=== PATIENT | female | born 1970 | race Caucasian/White ===

== ENCOUNTER 2022-03-25 19:50 | Emergency (ER) | payer SELFPAY ==
[2022-03-25 20:12] VITALS: BP 166/75; PULSE 73; RESP 18; TEMP 36.8; O2SAT 98; BMI 28.1
--- NOTE | 2022-03-25 20:37 | ED_ITS ---
HPI - General Adult General Chief complaint: Eye Problems Stated complaint: roula eyes swollen Time Seen by Provider: 03/25/22 20:37 Source: patient Mode of arrival: ambulatory Limitations: no limitations History of Present Illness HPI narrative: Patient is a 51 year old assigned female at with no reported medical history of presenting to the emergency department today with bilateral eyelid redness and irritation. Patient states that both of her eye lids have been very dry and painful over the last 2 days. Patient denies any dizziness, lightheadedness, abdominal pain, nausea, vomiting, fever, chills, blurry vision, double vision, loss of vision, chest pain, difficulty breathing, shortness of breath, back pain, night sweats, pain with urination, increased urinary frequency, increased urinary urgency, blood in her urine or stool, syncope or a near syncopal episode, recent trauma or falls, bowel incontinence, bladder incontinence, bowel retention, bladder retention, or any other complaints at this time. Onset (ago): day(s) (2) Location: eyes Radiation: non-radiation Severity: mild Severity scale (1-10): 3 Pain Consistency: constant Relieving factors: none Exacerbating factors: none Associated symptoms: denies other symptoms Treatments prior to arrival: none Related Data Allergies Allergy/AdvReac Type Severity Reaction Status Date / Time No Known Allergies Allergy Verified 03/25/22 20:11 Review of Systems Constitutional: Constitutional: Reports no additional constitutional complaints, Denies chills, Denies fever(s) and Denies night sweats Eyes: Eyes: Reports no additional eye complaints, Denies blurry vision, Denies change in vision, Denies diplopia, Denies eye discharge, Denies loss of vision and Denies eye pain ENT: Denies dizziness Comments: bilateral eye lid pain / redness Cardiovascular: Cardiovascular: Reports no additional cardiovascular complaints, Denies chest pain, Denies lightheadedness, Denies Loss of Consciousness and Denies dyspnea Respiratory: Respiratory: Reports no additional respiratory complaints and Denies dyspnea Gastrointestinal: Gastrointestinal: Reports no additional gastrointestinal complaints, Denies abdominal pain, Denies melena, Denies hematochezia, Denies change in bowel habits and Denies change in stool character Genitourinary: Genitourinary: Denies hematuria, Denies urinary frequency, Denies dysuria, Denies urinary incontinence, Denies urinary hesitancy and Denies urinary urgency Musculoskeletal: Musculoskeletal: Reports no additional musculoskeletal complaints, Denies numbness and Denies tingling Neurologic: Denies dizziness, Denies loss of vision, Denies numbness and Denies tingling Psychiatric: Psychiatric: Reports no additional psychiatric complaints Endocrine: Endocrine: Reports no additional endocrine complaints Hematologic/Lymphatic: Hematologic/Lymphatic: Reports no additional hematologic/lymphatic complaints Allergic/Immunologic: Allergic/Immunologic: Reports no additional allergic/immunologic complaints PMFSH Past Medical History Attestation statement: The following information was validated with the patient. Source: old records reviewed and nursing notes reviewed Social History Social History Advance Directives: No Advance Directives Information Provided: No Physical Exam ED Vital Signs: Vital Signs - 24 hr 03/25/22 20:12 Temperature 98.2 F Pulse Rate 73 Respiratory Rate 18 Blood Pressure 166/75 H Pulse Oximetry 98 Oxygen Delivery Method Room Air BMI result Body Mass Index 28.1 Const General: cooperative, no acute distress, alert and awake Nutritional Appearance: well nourished Orientation/consciousness: patient oriented x3 Limitations: no limitations HENMT Head: Yes normal to inspection and Yes atraumatic Ears: hearing grossly normal bilaterally and external ears normal General nose exam: Normal external nose present, no nasal discharge noted and no epistaxis Face and sinus: Yes normal facial exam, No abrasion and No laceration Mouth: Normal oral and palatal mucosa present, no drooling and no muffled voice Eyes Eyelids: Yes other (bilateral eye lid redness / dryness) Conjunctivae: conjunctivae normal Pupils: Equal, round and reactive pupils present EOM: EOMs intact bilaterally Neck Neck: Yes normal visual inspection, Yes full ROM and Yes no lymphadenopathy Chest Chest palpation & inspection: normal inspection of the chest Resp Effort & Inspection: normal respiratory effort and able to speak in complete sentences Auscultation: clear to auscultation bilaterally Cardio Rate: regular rate Rhythm: regular rhythm GI Inspection: Yes normal to inspection Palpation (GI): Soft to palpation, not firm, nontender and no guarding Neuro General: patient oriented x3 and moves all extremities Cranial nerves: Yes Equal, round and reactive pupils present Cognition (Neuro): normal cognition Motor exam (neuro): 5/5 motor strength present throughout Sensory Exam: Normal double simultaneous stimulation for sensation Coordination: [id number] test normal Extrem General: Yes normal to inspection, Yes full ROM and Yes capillary refill normal Psych Appearance: grossly normal Mental Status: mental status grossly normal Affect: normal affect Attitude: cooperative Thought process: Normal thought process present Thought content: Normal thought content present Insight: Good insight present (Psych) Medical Decision Making Medical Decision Making [facility] Narrative: Patient is a 51 year old assigned female at with no reported medical history presenting to the emergency department today with bilateral eye pain. Patient's physical exam showed bilateral eye redness and dryness. I explained my physical exam findings to the patient. I answered all questions asked by the patient. I stressed the importance of the patient taking her medication as prescribed. I stressed the importance of the patient following up with her primary care provider. I stressed the importance of the patient returning to the emergency department immediately if her symptoms were to worsen or if she were to develop any dizziness, shortness of breath, difficulty breathing, chest pain, blurry vision, loss of vision, nausea, vomiting, abdominal pain, fever, chills, back pain, or any other complaints. Patient verbalized agreement and understanding with this treatment plan and discharge. Differential Diagnosis Differential Diagnoses: The differential diagnosis associated with the presentation includes cellulitis, eczema Lab Data [facility] Lab Attestation statement: I reviewed the patient's lab results. Labs: Lab Results 03/25/22 03/25/22 Range/Units 20:20 20:20 COVID-19 (KIA) Negative (Negative) COVID-19 Clin Com See Note Influenza Type A (MATTHEW) Negative (Negative) Influenza Type B (MATTHEW) Negative (Negative) Influenza A & B Note See Note Discharge Plan Discharge Clinical Impression: Cellulitis, Eczema Patient Disposition: Home, Self-Care Instructions: Cellulitis (ED), Dermatitis (ED) Additional Instructions: Follow up with your primary care provider. Return to the emergency department immediately if your symptoms worsen or if you develop any dizziness, shortness of breath, difficulty breathing, chest pain, blurry vision, loss of vision, nausea, vomiting, abdominal pain, fever, chills, back pain, or any other complaints. Referrals: [facility] [Provider Group] (Call to establish and follow up with a astronomy professor. ) [facility] [place] [facility] [Provider Group] (Call to establish and follow up with a primary care provider. If you already have a primary care provider, please follow up with them. ) [facility] [place] Primary Lefty Darnell [Provider Group] (Call to establish and follow up with a primary care provider. If you already have a primary care provider, please follow up with them. ) [facility] [Provider Group] (Call to establish and follow up with a primary care provider. If you already have a primary care provider, please follow up with them. ) Stand Alone Forms: Work/School Release Print Language: German
[2022-03-25 20:43] LABS: COVID-19 Test Negative (Negative); IDNOW Serial# 08D9AD1C; Influenza A Negative (Negative); Influenza B2 Negative (Negative)
[2022-03-25] MEDS: cephALEXin 500 MG CAPSULE PO (20:54)
[2022-03-25] MEDS: predniSONE 20 MG TABLET PO (20:54)
== END 2022-03-25 20:59 | disposition home or self-care (01) ==
PROVIDERS: Emergency Provider Internal Medicine
DX: H00.033 Abscess of eyelid right eye, unspecified eyelid (principal); H00.036 Abscess of eyelid left eye, unspecified eyelid; L30.9 Dermatitis, unspecified; Z20.822 Contact with and (suspected) exposure to COVID-19
CPT/HCPCS: 87502; 87635; 99282

== ENCOUNTER 2024-07-10 12:00 | Emergency (ER) | payer MEDICAID, SELFPAY ==
--- NOTE | ~2024-07-10 | CT_ITS ---
CLINICAL HISTORY: Abdominal pain. CT abdomen and pelvis with contrast Comparison: None Findings: Findings at the level of the chest are reported separately. There are multiple liver cysts measuring up to 3.3 cm in size. 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 Remaining abdominal organs are unremarkable. There are no calcified gallstones. There is colonic diverticulosis. There is edema associated with a diverticulum within the midsigmoid colon. There is adjacent mesenteric edema and a small amount of adjacent free fluid. No abscess or free intraperitoneal air. No bowel obstruction. Status post hysterectomy. Otherwise unremarkable pelvic contents. Normal appendix. The bones are intact. IMPRESSION: Acute diverticulitis of the sigmoid colon. There is a small amount of adjacent free fluid. There is no evidence of abscess. This document has been electronically signed by: Thea Bhat MD on 07/10/2024 18:17:18
--- NOTE | ~2024-07-10 | CT_ITS ---
CLINICAL HISTORY: positive D-dimer palpitations. PE? CT angiography chest with contrast. 3D Postprocessing. Comparison: None Findings: The heart is normal size. RV/LV ratio is normal. The thoracic aorta is normal caliber. No acute pulmonary embolus. The visualized thyroid and mediastinum are unremarkable. There are ground-glass and linear opacities within the lower lungs, compatible with atelectasis. No consolidation or pleural effusion. 7 mm nodule associated with the right major fissure on image 27. The visualized upper abdomen is unremarkable. No acute fractures. IMPRESSION: 1. No evidence of pulmonary artery embolism. 2. There is a 7 mm nodule associated with the right major fissure. Recommend CT follow-up in 6-12 months. This document has been electronically signed by: Thea Bhat MD on 07/10/2024 18:28:33
[2024-07-10 12:08] VITALS: BP 136/73; PULSE 64; RESP 16; TEMP 36.7; O2SAT 96
--- NOTE | 2024-07-10 12:09 | ED_ITS ---
HPI - General Adult General Chief complaint: General Medical Stated complaint: fluttery heart abd cramps pressure Time Seen by Provider: 07/10/24 13:34 Source: patient Mode of arrival: ambulatory Limitations: no limitations History of Present Illness ED Provider: Kvng Jane HPI narrative: 53-year-old female with past medical history of depression presents to ED for palpitations for the past 3 weeks and also intermittent abdominal pain. Patient denies in his shortness of breath, leg swelling, calf pain, or pleurisy. He denies any genitourinary symptoms. Patient denies any chest pain radiating to the back. Related Data Previous Rx's ?Medication ?Instructions ?Recorded cephalexin 500 mg capsule 500 mg PO Q6H 7 days #28 caps 03/25/22 prednisone 20 mg tablet 20 mg PO DAILY 7 days #7 tabs 03/25/22 amoxicillin 875 mg-potassium 1 tab PO Q12H 10 days #20 tabs 07/10/24 clavulanate 125 mg tablet naproxen 500 mg tablet 500 mg PO BID PRN pain #14 tabs 07/10/24 Allergies Allergy/AdvReac Type Severity Reaction Status Date / Time No Known Allergies Allergy Verified 07/10/24 12:15 Review of Systems 2 Review of Systems: Intermittent chest palpitation and abdominal cramping Yes all other systems are reviewed and are negative Physical Exam ED Vital Signs: Vital Signs - 24 hr 07/10/24 12:08 07/10/24 14:21 07/10/24 18:33 Temperature 98.1 F 98.1 F Pulse Rate 64 54 58 Respiratory Rate 16 16 15 Blood Pressure 136/73 144/71 H 131/77 Pulse Oximetry 96 95 93 Oxygen Delivery Method Room Air Room Air Room Air BMI result Body Mass Index 0.3 Const General: cooperative, healthy appearing, comfortable, no acute distress, well developed, alert, awake and Physically active Orientation/consciousness: patient oriented x3 HENMT Head: Yes normal to inspection, Yes No palpable skull fracture present, Yes normocephalic and Yes atraumatic Eyes General: appearance normal, both eyes and all related structures Neck Neck: Yes normal visual inspection, Yes full ROM, Yes no lymphadenopathy, Yes no meningeal signs, Yes trachea midline, Yes supple, No anterior neck swelling and No tender Chest Chest palpation & inspection: normal inspection of the chest and normal palpation of entire chest wall Breast/axilla inspection: normal inspection of the breasts Resp Effort & Inspection: normal respiratory effort and able to speak in complete sentences Auscultation: clear to auscultation bilaterally Cardio Jugular venous distension: no JVD Heart sounds: S1 normal heart sound present and S2 normal heart sound present GI Inspection: Yes normal to inspection Palpation (GI): Soft to palpation, not firm, Tenderness to palpation present (GI) in the LLQ and in the RLQ, no guarding and not rigid General: Yes no CVA tenderness Back/Spine/Pelvis Back: no CVA tenderness and No back tenderness Skin General skin exam: no rashes or lesions noted, elasticity normal and turgor normal Neuro General: patient oriented x3, gait normal, tone normal, moves all extremities, Normal light touch and pain sensation, no meningeal signs, no focal motor deficits, CN's II-XI intact bilaterally and normal sensation to monofilament Extrem Other: Bilateral lower extremity negative for swelling, pitting edema, calf tenderness. General: Yes normal to inspection, Yes full ROM and Yes capillary refill normal Psych Appearance: grossly normal, well kempt and not disheveled Course Course Course Narrative: This is a Rapid Medical Examination (RME) performed by Tien Martin PA-C in triage. Full HPI, ROS, assessment and treatment plan per primary provider in the Main ED. 07/10/24 1209 HATTIE Bansal Hx: 53 yo female here for eval of intermittent fluttering sensation x1 week. no chest pain. admits to nausea w/ one episode of vomiting. also reports feeling a pulsation in her abdomen/pelvic pressure/ abd cramping last night which began radiating to her back on lying down yesterday. states she may have a UTI. no urinary sx. last BM yesterday. surgical hx includes complete hysterectomy. PE/vitals: well appearing, vitals stable Plan: labs, ekg Medications Administered Discontinued Medications Generic Name Dose Route Start Last Admin Trade Name Freq PRN Reason Stop Dose Admin Iohexol 100 ml 07/10/24 17:26 07/10/24 17:27 Iohexol 350 Mg/Ml 100 Ml Infus..Btl IV 07/10/24 17:27 85 ml ONCE ONE Administration Ketorolac Tromethamine 30 mg 07/10/24 19:05 07/10/24 19:10 Ketorolac Tromethamine 30 Mg/Ml Vial IVPUSH 07/10/24 19:06 30 mg ONCE ONE Administration Medical Decision Making Medical Decision Making [facility] Narrative: 53-year-old female presents to ED for intermittent chest palpitations and slight lower abdominal cramping for past couple of weeks. Patient not in distress. Patient presently has no chest pain or shortness of breath. Due to atypical presentation of palpitation. Thyroid level was sent which were normal. D-dimer was elevated so a chest CTA was ordered and abdominal CT scan was ordered. 7:07pm: Chest CTA negative for PE but does shows right pulmonary nodule. CT scan shows acute diverticulitis. Patient will be given Toradol and discharged with Augmentin. Patient explained worrisome signs and informed to return to the ED immediately. PATIENT MADE AWARE OF LIVER CYSTS. patient given copy of images for follow up. Differential Diagnosis Differential Diagnoses: The differential diagnosis associated with the presentation includes (PE, anxiety, pneumonia, hepatitis, colitis) Admission/Observation Consideration of admission/observation: Escalation of care including admission/observation considered Lab Data [facility] Lab Attestation statement: I reviewed the patient's lab results. 07/10/24 12:30 07/10/24 12:30 Labs: Lab Results 07/10/24 07/10/24 07/10/24 Range/Units 12:30 14:24 15:20 WBC 7.1 (4.8-10.8) X10*3/uL RBC 4.38 (4.20-5.50) X10*6/uL Hgb 12.9 (12.0-16.0) g/dl Hct 38.3 (37.0-47.0) % MCV 87.4 (80.0-98.0) fL MCH 29.5 (27.0-33.0) pg MCHC 33.7 (31.0-35.0) g/dl RDW 12.9 (11.0-16.0) % Plt Count 272 (160-400) X10*3/uL MPV 9.7 (9.4-12.3) fL Immature Gran % (Auto) 0.3 (0.0-0.4) % Neut % (Auto) 48.8 (45-73) % Lymph % (Auto) 41.6 H (20-40) % Frio % (Auto) 7.4 (2-11) % Eos % (Auto) 1.5 (0-4) % Baso % (Auto) 0.4 (0-2) % Lymph # (Auto) 3.0 (1.2-4.9) X10*3/uL Frio # (Auto) 0.5 (0.1-1.2) X10*3/uL Eos # (Auto) 0.1 (0.0-0.4) X10*3/uL Baso # (Auto) 0.0 (0.0-0.2) X10*3/uL Abs Immat Gran (auto) 0.02 (0.00-0.03) X10*3/uL Absolute Neuts (auto) 3.5 (2.0-8.3) x10*3/uL Absolute Nucleated RBC 0.000 (0.0-0.012) X10*3/uL Nucleated RBC % (auto) 0.0 (0.0-0.2) /100WBC PT 19.7 H (10.9-12.4) SEC INR 1.7 H (0.9-1.1) APTT 35.6 (26.0-36.8) SEC D-Dimer High Sensitivty 260 NG/ML Sodium 138 (135-145) mmol/L Potassium 4.1 (3.3-5.1) mmol/L Chloride 105 (96-108) mmol/L Carbon Dioxide 26 (22-29) mmol/L Anion Gap 11 L (12-20) BUN 7 L (9-16) mg/dL Creatinine 0.59 (0.5-1.4) mg/dL Estim Creat Clear Calc 160.0 Estimated GFR > 60 Random Glucose 87 (60-115) mg/dL Calcium 9.5 (8.4-10.2) mg/dL Magnesium 2.1 (1.6-2.6) mg/dL Total Bilirubin 0.7 (0.0-1.0) mg/dL AST 22 (5-31) U/L ALT 18 (0-31) U/L Alkaline Phosphatase 70 (39-117) U/L Troponin I High Sens < 2.7 (<3.5-17.0) ng/L B-Natriuretic Peptide 30 (<100) pg/mL Total Protein 7.3 (6.5-8.0) g/dL Albumin 4.2 (3.5-5.0) g/dL Lipase 19 (8-78) U/L TSH 1.17 (0.32-4.0) uIU/mL Beta HCG, Quant 3 mIU/mL Urine Color Yellow Urine Appearance Clear Urine pH 6.0 (5.0-9.0) Ur Specific [place] 1.010 (1.005-1.025) Urine Protein Negative (Neg-Trace) mg/dL Urine Glucose (UA) Negative (Negative) mg/dL Urine Ketones Trace (Negative) mg/dL Urine Blood Negative (Negative) Urine Nitrite Negative (Negative) Ur Leukocyte Esterase Small (1+) H (Negative) Urine RBC 0-2 (0-2) /HPF Urine WBC 0-5 (0-5) /HPF Ur Squamous Epith Cells 3-5 (0-2) /HPF Urine Bacteria None Seen (None Seen) Hyaline Casts 0-2 (0-2) /LPF Independent Interpretation I performed an independent interpretation of an: CT Scan Radiology Impression Discussion of test interpretation with radiology: I have reviewed the radiologist's reading. Independent Historian Clinical information obtained from an independent historian. History obtained from or confirmed by: Other (Patient) Prescription Management I considered prescription management with: Pain Medication and Antibiotic Discharge Plan Discharge Clinical Impression: Pulmonary nodule, Diverticulitis Patient Disposition: Home, Self-Care Instructions: Diverticulitis Diet (ED), Pulmonary Nodules (ED) Additional Instructions: Chest CT scan shows pulmonary nodule. Scaphoid showed acute diverticulitis. Recommend follow up with primary care provider. You will be discharged with pain medication and antibiotics. Return to the for any coughing up blood, weight loss, calf swelling, chest pain, shortness of breath on inspiration, profuse diarrhea, blood in stool, severe abdominal pain, nausea, vomiting, or any other concerning symptoms. CT angiography chest with contrast. 3D Postprocessing. Comparison: None Findings: The heart is normal size. RV/LV ratio is normal. The thoracic aorta is normal caliber. No acute pulmonary embolus. The visualized thyroid and mediastinum are unremarkable. There are ground-glass and linear opacities within the lower lungs, compatible with atelectasis. No consolidation or pleural effusion. 7 mm nodule associated with the right major fissure on image 27. The visualized upper abdomen is unremarkable. No acute fractures. IMPRESSION: 1. No evidence of pulmonary artery embolism. 2. There is a 7 mm nodule associated with the right major fissure. Recommend CT follow-up in 6-[address] abdomen and pelvis with contrast Comparison: None Findings: Findings at the level of the chest are reported separately. There are multiple liver cysts measuring up to 3.3 cm in size. 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 Remaining abdominal organs are unremarkable. There are no calcified gallstones. There is colonic diverticulosis. There is edema associated with a diverticulum within the midsigmoid colon. There is adjacent mesenteric edema and a small amount of adjacent free fluid. No abscess or free intraperitoneal air. No bowel obstruction. Status post hysterectomy. Otherwise unremarkable pelvic contents. Normal appendix. The bones are intact. IMPRESSION: Acute diverticulitis of the sigmoid colon. There is a small amount of adjacent free fluid. There is no evidence of abscess. This document has been electronically signed by: Thea Bhat MD on 07/10/2024 18:17:18 Prescriptions: New naproxen 500 mg tablet 500 mg PO BID PRN (Reason: pain) Qty: 14 0RF amoxicillin-pot clavulanate 875-125 mg tablet 1 tab PO Q12H 10 Days Qty: 20 0RF No Action prednisone 20 mg tablet 20 mg PO DAILY 7 Days Qty: 7 0RF cephalexin 500 mg capsule 500 mg PO Q6H 7 Days Qty: 28 0RF Referrals: Dinah Aparicio NP [Primary Care Provider] - (Pulmonary nodule. Acute diverticulitis) Interventions: ED Discharge Assessment Last Done: 07/10/24 20:58 Discharge Date/Time: 07/10/24 20:59 Print Language: Malay
--- NOTE | 2024-07-10 12:13 | ECG_ITS ---
Test Reason : FLUTTER SENSATION Blood Pressure : */* mmHG Vent. Rate : 62 BPM Atrial Rate : 62 BPM P-R Int : 166 ms QRS Dur : 124 ms QT Int : 460 ms P-R-T Axes : 52 21 2 degrees QTcB Int : 466 ms Normal sinus rhythm Right bundle branch block Abnormal ECG No previous ECGs available Referred By: Evelin Martin Electronically Signed By: JAMAR PIÑA MD
[2024-07-10 12:43] LABS: MANUAL DIFF FLAG NO
[2024-07-10 12:49] LABS: Basophils Percent Auto 0.4 % (0-2); Eosinophils Absolute Auto 0.1 X10*3/uL (0.0-0.4); Eosinophils Percent Auto 1.5 % (0-4); Hematocrit 38.3 % (37.0-47.0); Hemoglobin 12.9 g/dl (12.0-16.0); Imm Gran Abs Auto 0.02 X10*3/uL (0.00-0.03); Imm Gran Pct Auto 0.3 % (0.0-0.4); Lymphocytes Percent Auto 41.6 % (20-40); Mean Corpuscular HGB Conc 33.7 g/dl (31.0-35.0); Mean Corpuscular Hemoglobin 29.5 pg (27.0-33.0); Mean Corpuscular Volume 87.4 fL (80.0-98.0); Mean Platelet Volume 9.7 fL (9.4-12.3); Monocytes Absolute Auto 0.5 X10*3/uL (0.1-1.2); Monocytes Percent Auto 7.4 % (2-11); Neutrophils Absolute Auto 3.5 x10*3/uL (2.0-8.3); Neutrophils Percent Auto 48.8 % (45-73); Platelet Count 272 X10*3/uL (160-400); Red Blood Count 4.38 X10*6/uL (4.20-5.50); Red Cell Distribution Width 12.9 % (11.0-16.0); White Blood Count 7.1 X10*3/uL (4.8-10.8)
[2024-07-10 13:06] LABS: Troponin-I High Sensitivity < 2.7 ng/L (<3.5-17.0)
[2024-07-10 13:09] LABS: Alanine Aminotransferase 18 U/L (0-31); Albumin Level 4.2 g/dL (3.5-5.0); Anion Gap 11 (12-20); Aspartate Amino Transferase 22 U/L (5-31); Bilirubin Total 0.7 mg/dL (0.0-1.0); Blood Urea Nitrogen 7 mg/dL (9-16); Calcium 9.5 mg/dL (8.4-10.2); Carbon Dioxide 26 mmol/L (22-29); Chloride 105 mmol/L (96-108); Estimated Glomerular Filt Rate > 60; Glucose Random 87 mg/dL (60-115); Lipase 19 U/L (8-78); Magnesium 2.1 mg/dL (1.6-2.6); Potassium 4.1 mmol/L (3.3-5.1); Sodium 138 mmol/L (135-145); Total Protein 7.3 g/dL (6.5-8.0)
[2024-07-10 14:21] VITALS: BP 144/71; PULSE 54; RESP 16; O2SAT 95
[2024-07-10 14:34] LABS: Appearance Urine Clear; Color Urine Yellow; Glucose Urine UA Negative (Negative); Leukocyte Esterase Urine Small (1+) (Negative); Nitrite Urine Negative (Negative); UMIC TRIGGER UACC YES; Urine Blood Negative (Negative); Urine Ketones Trace mg/dL (Negative); Urine Protein Negative (Neg-Trace)
[2024-07-10 14:46] LABS: HCG Quantitative 3 mIU/mL
[2024-07-10 14:48] LABS: Bacteria Urine None Seen (None Seen); Hyaline Casts Urine 0-2 /LPF (0-2); RBC Urine 0-2 /HPF (0-2); UACC Culture Trigger YES; WBC Urine 0-5 /HPF (0-5)
[2024-07-10 15:31] LABS: INTERNATIONAL NORM RATIO 1.7 (0.9-1.1); Prothrombin Time 19.7 SEC (10.9-12.4)
[2024-07-10 15:33] LABS: D Dimer High Sensitivity 260 NG/ML
[2024-07-10 15:34] LABS: Partial Thromboplastin Time 35.6 SEC (26.0-36.8)
[2024-07-10 15:47] LABS: B Type Natriuretic Peptide 30 pg/mL (<100)
[2024-07-10 16:02] LABS: TSH reflex Free T4 1.17 uIU/mL (0.32-4.0)
[2024-07-10] MEDS: iohexoL 350 MG/ML 100 ML INFUS..BTL IV (17:27)
[2024-07-10 18:33] VITALS: BP 131/77; PULSE 58; RESP 15; TEMP 36.7; O2SAT 93
[2024-07-10 18:43] LABS: Alkaline Phosphatase 70 U/L (39-117)
[2024-07-10] MEDS: Ketorolac Tromethamine 30 MG/ML VIAL IVPUSH (19:10)
[2024-07-10 19:52] VITALS: BP 138/69; PULSE 55; RESP 16; TEMP 36.6; O2SAT 96
[2024-07-10 20:58] VITALS: BP 142/85; PULSE 53; RESP 16; TEMP 36.6; O2SAT 98
== END 2024-07-10 20:59 | disposition home or self-care (01) ==
PROVIDERS: Physician Assistant; Physician Assistant Medical; Emergency Provider Emergency Medicine Emergency Medical Services; PCP Nurse Practitioner Family
DX: R91.1 Solitary pulmonary nodule (principal); I48.92 Unspecified atrial flutter; K57.32 Diverticulitis of large intestine without perforation or abscess without bleeding; R25.2 Cramp and spasm; R06.02 Shortness of breath; R10.2 Pelvic and perineal pain; Z79.899 Other long term (current) drug therapy
CPT/HCPCS: 36415; 71275; 74177; 80053; 81001; 83690; 83735; 83880; 84443; 84484; 84702; 85025; 85379; 85610; 85730; 87086; 93005; 96374; 99284; J1885; Q9967

== ENCOUNTER → 2024-07-10 12:13 | Outpatient (BNV) | payer MEDICAID, SELFPAY | PROVIDERS: Emergency Provider Emergency Medicine Emergency Medical Services; PCP Nurse Practitioner Family; Visit Provider Internal Medicine Cardiovascular Disease | DX: I45.10 Unspecified right bundle-branch block (principal) | CPT/HCPCS: 93010 ==

== ENCOUNTER → 2024-07-10 16:25 | Outpatient (BNV) | payer MEDICAID, SELFPAY | PROVIDERS: Emergency Provider Emergency Medicine Emergency Medical Services; PCP Nurse Practitioner Family; Visit Provider Radiology Diagnostic Radiology | DX: K57.30 Diverticulosis of large intestine without perforation or abscess without bleeding (principal); R91.1 Solitary pulmonary nodule | CPT/HCPCS: 71275; 74177 ==

== ENCOUNTER 2024-12-28 12:39 | Emergency (ER) | payer MEDICAID, SELFPAY ==
--- NOTE | ~2024-12-28 | XR_ITS ---
EXAMINATION: XR KNEE, LEFT CLINICAL INFORMATION: fall COMPARISON: None available. TECHNIQUE: Four views of the left knee. FINDINGS: No fracture or joint effusion. Alignment is anatomic. Joint spaces are maintained. No abnormal soft tissue calcification. XR/XR knee LT 4V IMPRESSION: Normal left knee. Electronically signed by: Zandra Carlin MD 12/28/2024 02:07 PM EDT
--- NOTE | ~2024-12-28 | XR_ITS ---
EXAMINATION: XR KNEE, RIGHT CLINICAL INFORMATION: fall COMPARISON: None available. TECHNIQUE: Four views of the right knee. FINDINGS: Alignment is normal. No fracture or dislocation. Mild degenerative changes at the medial femoral tibial and patellofemoral joints small osteophytes. No joint effusion. Soft tissues are normal. XR/XR knee RT 4V IMPRESSION: Mild degenerative changes. No fracture or dislocation. Electronically signed by: Zandra Carlin MD 12/28/2024 02:31 PM EDT
[2024-12-28 13:38] VITALS: BP 153/74; PULSE 65; RESP 16; TEMP 36.6; O2SAT 96; BMI 33.8
--- NOTE | 2024-12-28 13:44 | ED_ITS ---
HPI - General Adult General Chief complaint: Extremity Injury, Lower Stated complaint: fell on knees, L knee hurts more Time Seen by Provider: 12/28/24 13:42 Source: patient Mode of arrival: ambulatory Limitations: no limitations History of Present Illness ED Provider: Kvng Jane HPI narrative: 54 yold female with no pmh presents to the ED for bilateral knee pain after falling unto both knees. Patient states she was walking her dog and she tripped over dog leash and fell unto her knees. Patient denies hitting head, loss of consciousness, any new complaints, or any new trauma. Related Data Previous Rx's ?Medication ?Instructions ?Recorded cephalexin 500 mg capsule 500 mg PO Q6H 7 days #28 cap s 03/25/22 prednisone 20 mg tablet 20 mg PO DAILY 7 days #7 tab s 03/25/22 amoxicillin 875 mg-potassium 1 tab PO Q12H 10 days #20 tabs 07/10/24 clavulanate 125 mg tablet naproxen 500 mg tablet 500 mg PO BID PRN pain #14 t abs 07/10/24 naproxen 500 mg tablet 500 mg PO BID PRN pain #14 t abs 12/28/24 Allergies Allergy/AdvReac Type Severity Reaction Status Date / Time No Known Allergies Allergy Verified 12/28/24 13:40 Review of Systems 2 Review of Systems: bilateral knee pain Yes all other systems are reviewed and are negative [facility] Social History Social History Advance Directives: No Advance Directives Information Provided: No Advance Directives on File: No Physical Exam ED Vital Signs: Vital Signs - 24 hr 12/28/24 13:38 Temperature 98 F Pulse Rate 65 Respiratory Rate 16 Blood Pressure 153/74 H Pulse Oximetry 96 Oxygen Delivery Method Room Air BMI result Body Mass Index 33.8 Const General: cooperative, healthy appearing, comfortable, no acute distress, well developed, alert, awake and Physically active Orientation/consciousness: patient oriented x3 HENMT Head: Yes normal to inspection, Yes No palpable skull fracture present, Yes normocephalic and Yes atraumatic Ears: hearing grossly normal bilaterally, external ears normal, TM's normal bilaterally, TM normal on the right, TM normal on the left, EAC's normal, mastoids normal and no periauricular adenopathy Eyes General: appearance normal, both eyes and all related structures Neck Neck: Yes normal visual inspection, Yes full ROM, Yes no lymphadenopathy, Yes no meningeal signs, Yes trachea midline, Yes supple, No anterior neck swelling and No tender Chest Chest palpation & inspection: normal inspection of the chest and normal palpation of entire chest wall Resp Effort & Inspection: normal respiratory effort and able to speak in complete sentences Auscultation: clear to auscultation bilaterally Cardio Jugular venous distension: no JVD Heart sounds: S1 normal heart sound present and S2 normal heart sound present GI Inspection: Yes normal to inspection Palpation (GI): Soft to palpation, not firm, nontender, no guarding and not rigid General: Yes no CVA tenderness Back/Spine/Pelvis Back: no CVA tenderness and No back tenderness Skin General skin exam: no rashes or lesions noted, elasticity normal and turgor normal Neuro General: patient oriented x3, gait normal, tone normal, moves all extremities, Normal light touch and pain sensation, no meningeal signs, no focal motor deficits and CN's II-XI intact bilaterally Extrem General: Yes normal to inspection, Yes full ROM and Yes capillary refill normal Knee images: 2 1. positive for tenderness on palpation. negative for ecchymosis, erythema, deformities, crepitus, stiffness, or warmth. Rest of extremity is normal. Motor, neuro, and vascular exam is intact. 2. positive for tenderness on palpation. negative for ecchymosis, erythema, deformities, crepitus, stiffness, or warmth. Rest of extremity is normal. Motor, neuro, and vascular exam is intact. Psych Appearance: grossly normal, well kempt and not disheveled Course Course Course Narrative: RME: 54-year-old female presents to ED for bilateral knee pain after tripping over her dog. Patient states she was walking her dog. Certainly she tripped over the leash and fell onto both knees. Patient denies hitting head or loss of consciousness. Patient states no other complaints. Knee x-ray ordered Medical Decision Making Medical Decision Making MDM Narrative: 54-year-old female presents to ED for bilateral knee pain after being tripped by her dog and falling onto her knees. Patient denies hitting head or loss of consciousness. Patient states no other complaints. X-rays normal negative for fracture. Not suspecting brain bleed, cervical spine fracture, OR, PE, pneumothorax, hemothorax, septic joint, compartment syndrome, or any other life- threatening etiology. Patient explained worrisome signs and informed to return to the ED immediately. 10:36- patient left before receiving discharge paper. Differential Diagnosis Differential Diagnoses: The differential diagnosis associated with the presentation includes (Knee sprain, knee fracture knee dislocation) Admission/Observation Consideration of admission/observation: Escalation of care including admission/observation considered Independent Interpretation I performed an independent interpretation of an: Plain X-Ray Radiology Impression Discussion of test interpretation with radiology: I have reviewed the radiologist's reading. Independent Historian Clinical information obtained from an independent historian. History obtained from or confirmed by: Other (patient) Prescription Management I considered prescription management with: Pain Medication Discharge Plan Discharge Clinical Impression: Knee sprain Patient Disposition: Home, Self-Care Instructions: Knee Sprain (ED), How to Use an Elastic Bandage (ED), P.R.I.C.E. Treatment (ED) Additional Instructions: X-rays came back normal. Recommend follow up with primary care provider. Return to the ED immediately for any headache, dizziness, nausea, vomiting, swelling, redness, stiffness, inability to walk, red streaks, or any other concerning symptoms. Prescriptions: New naproxen 500 mg tablet 500 mg PO BID PRN (Reason: pain) Qty: 14 0RF No Action prednisone 20 mg tablet 20 mg PO DAILY 7 Days Qty: 7 0RF cephalexin 500 mg capsule 500 mg PO Q6H 7 Days Qty: 28 0RF naproxen 500 mg tablet 500 mg PO BID PRN (Reason: pain) Qty: 14 0RF amoxicillin-pot clavulanate 875-125 mg tablet 1 tab PO Q12H 10 Days Qty: 20 0RF Referrals: Dinah Aparicio NP [Primary Care Provider, Medical] - 2 days Referral Note: Knee sprain fall Clinical Impression: Knee sprain Stand Alone Forms: Work/School Release Discharge Date/Time: 12/28/24 18:42 Print Language: Hong Konger
--- OUTSIDE RECORDS SUMMARY | 2024-12-28 18:44 | XMS_ITS | Encounter Summary ---
Author Organization [facility] Address [address] [place] [address] Phone Care Team Providers Care Spice Room Worker Name Role Phone Dinah Aparicio CNP Primary Care Provide r Encounter Details Date Type Department Care Team (Late st Contact Info) Description 12/10/2019 Ancillary Orders [address] [address] Dinah Aparicio CNP [address] [place] [address] [email or web address] Breast screening Social History Tobacco Use Types Packs/Day Years Used Date Smoking Tobacco: Never Smokeless Tobacco: Never Alcohol Use Standard Drinks/Week Comments Not Asked 1 (1 standard drink = 0.6 oz pur e alcohol) occasional, once a month Comments Unknown Sex and Gender Information Value Date Recorded Sex Assigned at Not on file Legal Sex Female 9:46 AM EDT Gender Identity Not on file Sexual Orientation Not on file documented as of this encounter Plan of Treatment Not on file documented as of this encounter Results * (ABNORMAL) BI MAMMOGRAM SCREENING WITH TOMOSYNTHESIS WITH CAD (BILATERAL) (01/04/2020 3:11 PM EDT) Anatomical Region Laterality Modality Breast Left, Breast Right, Breast Bilateral Bila teral Mammography 01/04/2020 3:39 PM EDT Impressions 01/04/2020 3:45 PM EDT Recommend additional imaging for possible new 1 cm mass in the mid one third of the lower outer right breast. No other findings suspicious for malignancy. The radiology department will attempt to recall the patient for the additional imaging. BI-RADS CATEGORY 0 - INCOMPLETE NEED ADDITIONAL IMAGING DENSITY: There are scattered fibroglandular densities. LEFT RECOMMENDATION DUE DATE: Annual Mammography Screening RIGHT RECOMMENDATION DUE DATE: 1 Month Additional Imaging Recall imagin degrees ML view, spot compression cc view of right breast, block off right breast ultrasound in case necessary. Narrative 01/04/2020 3:45 PM EDT Bilateral mammography is performed in conjunction with computed aided detection. 3-D tomography along with 2-D C view imaging was also performed. Comparison made to previous dated as far back as 06/12/2016 and as recent as 07/04/2017. Possible new oval approximate mm mass in the mid one third of the lower outer right breast. Small focal asymmetry in the lower inner right breast is stable for years. Otherwise, no suspicious masses, areas of architectural distortion or suspicious microcalcifications. Dinah Aparicio FREELANCE COPYWRITER IM MG EXAMS Final Result documented in this encounter Visit Diagnoses Diagnosis Breast screening Breast screening, unspecified Breast screening Breast screening, unspecified documented in this encounter Care Teams Spice Room Worker Relationship Specialty Start Date End Date Dinah Aparicio CNP [address] [place] [address] [place] [address] PCP - General Family Medicine 12/10/19 documented as of this encounter Additional Source Comments The information contained in this document represents components of the legal health record. It is not the complete legal health record.[facility]
--- OUTSIDE RECORDS SUMMARY | 2024-12-28 18:44 | XMS_ITS | Encounter Summary ---
Author Organization [facility] Address [address] [place] [address] Phone Care Team Providers Care Microarray Operations Vice President Name Role Phone Dinah Aparicio CNP Primary Care Provide r Encounter Details Date Type Department Care Team (Late st Contact Info) Description 12/10/2019 Ancillary Orders [facility],Outside Imaging [address] [place] [address] System, Provider Not In, [place] [address] Social History Tobacco Use Types Packs/Day Years [...] documented as of this encounter Results * US Breast Outside (No Interpretation) (09/09/2014 12:00 AM EDT) Narrative SYSTEMGENERATED, DOCUMENTATION - 12/10/2019 4:57 PM EDT This study is for PACS storage only and not for interpretation. us Provider Not In System PhD IMG OUTSIDE IMAGING W /OUT INTERPRETATION Final Result * Mammogram Outside (No Interpretation) (09/08/2014 12:00 AM EDT) Narrative SYSTEMGENERATED, DOCUMENTATION - 12/10/2019 4:56 PM EDT This study is for PACS storage only and not for interpretation. us Provider Not In System PhD IMG OUTSIDE IMAGING W /OUT INTERPRETATION Final Result documented in this encounter Visit Diagnoses Not on filedocumented in this encounter Care Teams Microarray Operations Vice President Relationship Specialty Start Date End Date Dinah Aparicio CNP [address] [place] [address] [place] [address] [email or web address] PCP - General Family Medicine 12/10/19 documented as of this encounter Additional Source Comments The information contained in this document represents components of the legal health record. It is not the complete legal health record.[facility]
--- OUTSIDE RECORDS SUMMARY | 2024-12-28 18:44 | XMS_ITS | Encounter Summary ---
Author Organization [facility] Address [address] [place] [phone] Phone Care Team Providers Care Sponge Buffer Name Role Phone Dinah Aparicio CNP Primary Care Provide r Encounter Details Date Type Department Care Team (Late st Contact Info) Description 12/11/2019 Ancillary Orders [facility],Outside Imaging [address] [place] [address] System, Provider Not In, [place] [address] Social History Tobacco Use Types Packs/Day Years [...] documented as of this encounter Results * Mammogram Outside (No Interpretation) (07/04/2017 12:00 AM EDT) Narrative SYSTEMGENERATED, DOCUMENTATION - 12/11/2019 8:59 AM EDT This study is for PACS storage only and not for interpretation. us Provider Not In System PhD IMG OUTSIDE IMAGING W /OUT INTERPRETATION Final Result * Mammogram Outside (No Interpretation) (06/12/2016 12:00 AM EDT) Narrative SYSTEMGENERATED, DOCUMENTATION - 12/11/2019 8:59 AM EDT This study is for PACS storage only and not for interpretation. us Provider Not In System PhD IMG OUTSIDE IMAGING W /OUT INTERPRETATION Final Result documented in this encounter Visit Diagnoses Not on filedocumented in this encounter Care Teams Sponge Buffer Relationship Specialty Start Date End Date Dinah Aparicio CNP [address] [place] [address] [place] [address] [email or web address] PCP - General Family Medicine 12/10/19 documented as of this encounter Additional Source Comments The information contained in this document represents components of the legal health record. It is not the complete legal health record.[facility]
--- OUTSIDE RECORDS SUMMARY | 2024-12-28 18:44 | XMS_ITS | Encounter Summary ---
Author Organization [facility] Address [address] [place] [address] [place] [phone] Phone Care Team Providers Care Facility Maintenance Technician Name Role Phone Dinah Aparicio CNP Primary Care Provide r Encounter Details Date Type Department Care Team (Late st Contact Info) Description 12/28/2024 Orders Only [facility] Medicine [address] [place] [address] Provider, MD [facility] [place] [phone] Social History Tobacco Use Types Packs/Day Years Used Date Smoking Tobacco: Never Smokeless Tobacco: Never Alcohol Use Standard Drinks/Week Comments Not Asked 1 (1 standard drink = 0.6 oz pur e alcohol) occasional, once a month Education Answer Date Recorded Are you interested in more education? Not on brittany e 07/20/2022 Are you concerned about learning? Not on file 07/20/2022 No 07/20/2022 No 07/20/2022 Digital Access Answer Date Recorded No 08/18/2022 No 08/18/2022 Reliable internet access at home? Not on file 08/18/2022 Device with a working camera? Not on file Comments No Sex and Gender Information Value Date Recorded Sex Assigned at Not on file Legal Sex Female 9:46 AM EDT Gender Identity Not on file Sexual Orientation Not on file documented as of this encounter Plan of Treatment Not on file documented as of this encounter Procedures Procedure Name Priority Date/Time Associated Diagnosis Comments OUTSIDE IMAGING Routine 12/28/2024 2:45 PM EDT OUTSIDE IMAGING Routine 12/28/2024 2:44 PM EDT documented in this encounter Results * Outside Imaging Report Only (12/28/2024 2:45 PM EDT) us Historical Provider IMLevi XR CHEST Edited Re sult - Final * Outside Imaging Report Only (12/28/2024 2:44 PM EDT) us Historical Provider MD FLOR XR CHEST Final Res ult documented in this encounter Visit Diagnoses Not on filedocumented in this encounter Additional Health Concerns Assessment Noted Time PHQ-9 Depression Total Score: 0 08/26/19 24 4:25 PM EDT PHQ-2 Depression Total Score: 0 08/26/19 24 4:25 PM EDT documented as of this encounter Care Teams Facility Maintenance Technician Relationship Specialty Start Date End Date Dinah Aparicio CNP [address] [place] [address] [place] [address] [email or web address] PCP - General Family Medicine 12/10/19 documented as of this encounter Additional Source Comments The information contained in this document represents components of the legal health record. It is not the complete legal health record.[facility]
--- OUTSIDE RECORDS SUMMARY | 2024-12-28 18:44 | XMS_ITS | Encounter Summary ---
Author Organization [facility] Address [address] [place] [address] [place] [address] Phone Care Team Providers Care Strapping Machine Operator Name Role Phone Dinah Aparicio CNP Primary Care Provide r Encounter Details Date Type Department Care Team (Late st Contact Info) Description 04/10/2023 Transcribe Orders Virtual Department [address] [place] [address] Dinah Aparicio CNP [address] [place] [address] [email or web address] Breast screening (Primary Dx) Social History Tobacco Use Types Packs/Day Years [...] documented as of this encounter Results * BI MAMMOGRAM SCREENING WITH TOMOSYNTHESIS WITH CAD (BILATERAL) (06/03/2023 9:26 AM EDT) Anatomical Region Laterality Modality Breast Left, Breast Right, Breast Bilateral Bila teral Mammography 06/05/2023 8:29 AM EDT Impressions 06/05/2023 8:32 AM EDT No mammographic evidence of malignancy in either breast. Annual screening mammography is recommended. BI-RADS 1 NEGATIVE The patient will be notified of the results and recommendations. Narrative 06/05/2023 8:32 AM EDT BI MAMMOGRAM SCREENING WITH TOMOSYNTHESIS WITH CAD (BILATERAL) Additional patient information: Screening. COMPARISON: Comparison is made with relevant prior imaging. Breast composition: There are scattered areas of fibroglandular density. FINDINGS: No abnormal masses, suspicious calcifications, or other significant findings are identified mammographically in either breast. There has been no interval change. Procedure Note Trinh Fernandez MD - 06/05/2023 BI MAMMOGRAM SCREENING WITH TOMOSYNTHESIS WITH CAD (BILATERAL) Additional patient information: Screening. COMPARISON: Comparison is made with relevant prior imaging. Breast composition: There are scattered areas of fibroglandular density. FINDINGS: No abnormal masses, suspicious calcifications, or other significantfindings are identified mammographically in either breast. There has beenno interval change. IMPRESSION: No mammographic evidence of malignancy in either breast. Annual screening mammography is recommended. BI-RADS 1 NEGATIVE The patient will be notified of the results and recommendations. Dinah Aparicio CNP IMG MG EXAMS Final Result documented in this encounter Visit Diagnoses Diagnosis Breast screening- Primary Breast screening, unspecified Breast screening Breast screening, unspecified documented in this encounter Care Teams Strapping Machine Operator Relationship Specialty Start Date End Date Dinah Aparicio CNP [address] [place] [address] [email or web address] PCP - General Family Medicine 12/10/19 documented as of this encounter Additional Source Comments The information contained in this document represents components of the legal health record. It is not the complete legal health record.[facility]
--- OUTSIDE RECORDS SUMMARY | 2024-12-28 18:44 | XMS_ITS | Encounter Summary ---
Author Organization [facility] Address [address] [place] [address] [place] [phone] Phone Care Team Providers Care Barge Pilot Name Role Phone Dinah Aparicio CNP Primary Care Provide r Encounter Details Date Type Department Care Team (Late st Contact Info) Description 12/10/2019 Procedure Pass [address] [place] [address] Social History Tobacco Use Types Packs/Day Years Used Date Smoking Tobacco: Never Smokeless Tobacco: Never Alcohol Use Standard Drinks/Week Comments Not Asked 1 (1 standard drink = 0.6 oz pur e alcohol) occasional, once a month Comments No Sex and Gender Information Value Date Recorded Sex Assigned at Not on file Legal Sex Female 9:46 AM EDT Gender Identity Not on file Sexual Orientation Not on file documented as of this encounter Plan of Treatment Not on file documented as of this encounter Visit Diagnoses Not on filedocumented in this encounter Care Teams Barge Pilot Relationship Specialty Start Date End Date Dinah Aparicio CNP [address] [facility] [place] [address] [email or web address] PCP - General Family Medicine 12/10/19 documented as of this encounter Additional Source Comments The information contained in this document represents components of the legal health record. It is not the complete legal health record.[facility]
--- OUTSIDE RECORDS SUMMARY | 2024-12-28 18:44 | XMS_ITS | Clinical Summary ---
Author Organization [facility] Address [address] [facility] [address] [place] [phone] Phone Care Team Providers Care Cash Teller Name Role Phone Dinah Aparicio CNP Primary Care Provide r Allergies No known active allergies Medications therapeutic multivitamin tablet Take 1 tablet by mouth daily. Active amoxicillin-clavu lanate (AUGMENTIN) 400-57 mg per chewable tablet Take 2 tablets by mouth 2 (two) times a day. Active naproxen (EC NAPROSYN) 500 MG EC tablet Take 500 mg by mouth 2 (two) times a day with meals. Active escitalopram oxalate (LEXAPRO) 20 MG tabletIndications :Depression with anxiety TAKE 1 TABLET BY MOUTH EVERY DAY 90 tablet 3 5 Active Active Problems Problem Noted Date Diagnosed Date Acute diverticulitis 07/20/2024 Overview (07/20/2024): 07/10/2024 - seen at [facility], treated with Augmentin Assessment & Plan (07/20/2024 12:23 PM EDT): Improving on Augmentin, recommend liquid based bland diet until better then ensure high fiber diet for the long run. Pulmonary nodule, right 07/20/2024 Overview (07/20/2024): 7 mm, incidental nodule found on CTA done 07/10/2024 f/u CT imaging 6 - 12 months Assessment & Plan (07/20/2024 12:26 PM EDT): 7 mm, incidental nodule found on CTA done 07/10/2024 f/u CT imaging 6 - 12 months Liver cyst 07/20/2024 Overview (07/20/2024): Multiple liver cysts found incidentally on imaging done 07/10/2024 Assessment & Plan (07/20/2024 12:26 PM EDT): Multiple liver cysts found incidentally on imaging done 07/10/2024, recommend she consult with gastroenterology. She prefers to use providers closer to home and so she will let me know who she wants to be referred to. Angiomyolipoma of left kidney 07/20/2024 Overview (07/20/2024): Found incidentally on imaging done 07/10/2024 Assessment & Plan (07/20/2024 12:25 PM EDT): Found incidentally on imaging done 07/10/2024, recommend she consult with urology. She prefers to use providers closer to home and so she will let me know who she wants to be referred to. Vertigo 12/24/2023 Assessment & Plan (12/24/2023 10:35 AM EDT): Episodic lasting seconds, normal neuro exam, mildly provoked by Kiet-Hallpike to the left. Given handout on Lance and Cawthorne exercises. Class 1 obesity due to exces s calories without serious comorbidity with body mass index (BMI) of 31.0 to 31.9 in adult 08/26/2023 Assessment & Plan (08/26/2023 5:19 PM EDT): Frustrated with weight, active but current activity may not burn enough calories, suggest adding high intensity exercise, reduce calories Depression with anxiety 04/15/2023 Assessment & Plan (08/26/2023 5:18 PM EDT): Doing well on current dose. Assessment & Plan (06/17/2023 8:58 AM EDT): No improvement with the addition of Lexapro 10 mg, will adjust dose to 20 mg daily and recheck in four weeks on effect on mood. If no benefit consider adding Bupropion. Pt feels safe. Assessment & Plan (04/15/2023 10:02 AM EST): Depression, anxiety present all year long but more manageable for patient when weather is sunnier and nicer as she tries to be more active outdoors. She attempts to do this as well during winter but not as effective. Unclear which med she tried in past gave her weird dreams, recommend trying the Escitalopram along with regular exercise. Encouraged her to plan out exercise at least three times a week. Continue light therapy, getting outdoors in daylight when able Resolved Problems Problem Noted Date Diagnosed Date Resolved Date Seasonal mood disorder 04/09/202304/15 Assessment & Plan (04/09/2023 3:15 PM EST): Return to f/u on this issue for consideration of medication. In the interim, exercise regularly and continue light therapy, she is not seeing a therapist Encounters Date Type Department Care Team Description 12/28/2024 Orders Only [facility] [address] [place] [address] Provider, MD Sada from Last 3 Months Immunizations Immunization Administration Dates Next Due Influenza Quadrivalent Preservative Free IM 03/25,02/11/2020 Influenza Trivalent MDCK Preservative Free IM Pneumococcal conjugate PCV21 05/29/2024 Tdap 04/09/2023 Zoster recombinant 05/29/2024 Family History Medical History Relation Comments No Known Problems Brother No Known Problems Daughter Diabetes Father Poor self-care Breast cancer Maternal Grandmother Stroke Mother Brain stem Bone cancer Paternal Grandmother No Known Problems Son Relation Status Comments Brother Alive Daughter Father Maternal Grandmother Mother Paternal Grandmother Son Social History Tobacco Use Types Packs/Day Years [...] on file Sexual Orientation Not on file Last Filed Vital Signs Vital Sign Reading Time Taken Comments Blood Pressure 118/72 07/20/2024 11:48 AM EDT Pulse 63 07/20/2024 11:48 AM EDT Temperature 36.6 C (97.9 F) 12/24/2023 9:47 AM EDT Respiratory Rate 20 08/26/2023 4:23 PM EDT Oxygen Saturation 94% 07/20/2024 11:48 AM EDT Inhaled Oxygen Concentration - - Weight 93.4 kg (206 lb) 07/20/2024 11:48 AM EDT Height 170.2 cm (5' 7 ) 07/20/2024 11:48 AM EDT Body Mass Index 32.26 07/20/2024 11:48 AM EDT Plan of Treatment Health Maintenance Due Date Last Done Comments COLOGUARD 2013 COLONOSCOPY 2013 COLORECTAL CANCER SCREENING 2013 FIT TEST 2013 FOBT 2013 SIGMOIDOSCOPY 2013 VIRTUAL COLONOSCOPY 2013 ZOSTER VACCINES (2 of 2) 07/24/2024 05/29/2024 DEPRESSION SCREENING 08/25/2024 08/26/2023, 08/26/19 24 INFLUENZA VACCINE (#1) 2024 , 04/09/2023, 02/11/2020 COVID-19 VACCINE ( season) 2024 01/24/2022, 05/26/2020, 04/21/2020 MAMMOGRAM 06/02/2025 06/03/2023, 12/23, 07/04/2017, Additional history exists SCREENING FOR DIABETES 07/11/2027 07/10/2024, 2023 LIPID PANEL 04/15/2028 04/15/2023 Adult Td,Tdap Booster 04/09/2033 04/09/2023 RSV VACCINE (1 - 1-dose 75+ series) 10/31/2043 HEPATITIS C SCREENING Completed 04/15/2023 HIV ONE-TIME SCREENING (18-65 YEARS) Completed 04/15/2023 PNEUMOCOCCAL VACCINES (50+ years) Completed 05/29/2024 SMOKING STATUS SCREENING (Once After 26 Yrs) Completed 07/20/2024 HEPATITIS A VACCINES Aged Out No long er eligible based on patient's age to complete this topic HIB VACCINES Aged Out No longer eligi ble based on patient's age to complete this topic MENINGOCOCCAL VACCINES (ACWY) Aged Out No longer eligible based on patient's age to complete this topic MENINGOCOCCAL VACCINES (B) Aged Out N o longer eligible based on patient's age to complete this topic Medical Devices Not on file Procedures Procedure Name Priority Date/Time Associated Diagnosis Comments OUTSIDE IMAGING Routine 12/28/2024 2:45 PM EDT OUTSIDE IMAGING Routine 12/28/2024 2:44 PM EDT OUTSIDE GLUCOSE FASTING Routine 07/10/2024 BI MAMMOGRAM SCREENING WITH TOMOSYNTHESIS WITH CAD (BILATERAL) Routine 06/03/2023 9:26 AM EDT Breast screening LIPID PANEL Routine 04/15/2023 10:05 AM EST Annual physical exam HEPATITIS C ANTIBODY, QUALITATIVE Routine 04/15/2023 10:05 AM EST Need for hepatitis C screening test from Last 3 Months or Most Recently Relevant to Health Maintenance Results * Outside Imaging Report Only (12/28/2024 2:45 PM EDT) us Historical Provider MD FLOR XR CHEST Edited Re sult - Final * Outside Imaging Report Only (12/28/2024 2:44 PM EDT) Historical Provider IMLevi XR CHEST Final Res ult * Outside Glucose,Fasting (07/10/2024) Glucose, fasting - External 87 65 - 99 mg/dL Historical Provider LAB BLOOD ORDERABLES Aliza l Result * BI MAMMOGRAM SCREENING WITH TOMOSYNTHESIS WITH [...] Aparicio CNP IMG MG EXAMS Final Result * Hepatitis C antibody, qualitative (04/15/2023 10:05 AM EST) HCV NON-REACTIV E NON-REACTI VE [facility] Blood 04/15/2023 10:0 5 AM EST 04/15/2023 10:08 AM EST us Dinah Aparicio CNP LAB BLOOD ORDERABLES Final Result Performing Organization Address City/[facility]/ZIP Co de Phone Number [address] [phone] * Lipid panel (04/15/2023 10:05 AM EST) HDL 50 mg/dL [facility] Comment: Interpretation <40 mg/dL: Low HDL cholesterol (major risk factor for CHD) Greater than or equal to 60 mg/dL: High HDL cholesterol ( negative risk factor for CHD) HDL - cholesterol is affected by a number of factors, e.g. smoking, excerise, hormones, sex and age. CHOLESTEROL 198 0 - 240 mg/dL [facility] TRIGLYCERIDES 108 30 - 160 mg/dL [facility] LDL 126 50 - 129 mg/dL [facility] Comment: LDL levels in terms of risk for coronary heart disease: <100 mg/dL: Optimal 100-129 mg/dL: Near or above optimal 130-159 mg/dL: Borderline high 160-189 mg/dL: High >190 mg/dL: Very High CARDIAC RISK RATIO 4.0 3.3 - 4.4 C [facility] Blood 04/15/2023 10:0 5 AM EST 04/15/2023 10:08 AM EST us Dinah Aparicio CNP LAB BLOOD ORDERABLES Final Result Performing Organization Address [facility]/ZIP Co de Phone Number [address] [phone] from Last 3 Months or Most Recently Relevant to Health Maintenance Insurance [facility] Care Teams Cash Teller Relationship Specialty Start Date End Date Dinah Aparicio CNP [address] [place] [id number] PCP - General Family Medicine 12/10/19 Additional Source Comments The information contained in this document represents components of the legal health record. It is not the complete legal health record.[facility]
--- OUTSIDE RECORDS SUMMARY | 2024-12-28 18:44 | XMS_ITS | Encounter Summary ---
Author Organization [facility] Address [address] [place] [phone] Phone Care Team Providers Care Park Landscape Architect Name Role Phone Dinah Aparicio CNP Primary Care Provide r Encounter Details Date Type Department Care Team (Late st Contact Info) Description 01/05/2020 Procedure Pass [address] [place] [address] Social History Tobacco Use Types Packs/Day Years [...] on filedocumented in this encounter Care Teams Park Landscape Architect Relationship Specialty Start Date End Date Dinah Aparicio CNP [address] [facility] [place] [address] PCP - General Family Medicine 12/10/19 documented as of this encounter Additional Source Comments The information contained in this document represents components of the legal health record. It is not the complete legal health record.[facility]
--- OUTSIDE RECORDS SUMMARY | 2024-12-28 18:44 | XMS_ITS | Encounter Summary ---
Author Organization [facility] Address [address] [place] [address] [place] [phone] Phone Care Team Providers Care Loan Officer Assistant Name Role Phone Dinah Aparicio CNP Primary Care Provide r Encounter Details Date Type Department Care Team (Late st Contact Info) Description 04/10/2023 Procedure Pass [address] [place] [address] Social History Tobacco Use Types Packs/Day Years [...] Assessment Noted Time PHQ-9 Depression Total Score: 9 04/15/19 24 9:32 AM EST PHQ-2 Depression Total Score: 4 04/15/19 24 9:32 AM EST documented as of this encounter Care Teams Loan Officer Assistant Relationship Specialty Start Date End Date Dinah Aparicio CNP [address] [place] [address] [email or web address] PCP - General Family Medicine 12/10/19 documented as of this encounter Additional Source Comments The information contained in this document represents components of the legal health record. It is not the complete legal health record.[facility]
--- OUTSIDE RECORDS SUMMARY | 2024-12-28 18:44 | XMS_ITS | Encounter Summary ---
Author Organization [facility] Address [address] [place] [phone] Phone Care Team Providers Care Dry Cleaning Manager Name Role Phone Dinah Aparicio CNP Primary Care Provide r Encounter Details Date Type Department Care Team (Late st Contact Info) Description 01/05/2020 Ancillary Orders [address] [address] Dinah Aparicio CNP [address] [place] [phone] [email or web address] Abnormal mammogram Social History Tobacco Use Types Packs/Day Years [...] as of this encounter Results * BI US BREAST LIMITED (RIGHT) (01/25/2020 2:23 PM EST) Anatomical Region Laterality Modality Breast Right, Breast Bilateral Right U ltrasound 01/25/2020 2:27 PM EST Impressions 01/25/2020 2:31 PM EST Focal density demonstrated in the inferolateral right breast appears to represent a chronic focus of apocrine metaplasia. In the absence of palpable or otherwise clinically significant findings routine bilateral screening mammography in 12 months time would be recommended for follow-up. Results of this examination were relayed to the patient by the technologist. BI-RADS CATEGORY 2 - BENIGN POS [id number]. Narrative 01/25/2020 2:31 PM EST Comparisons made with current mammographic study and an outside ultrasound dated 09/09/2014 the official report of which is not currently available. At the approximate 7:00 position 6 cm from the nipple is a collection of cysts measuring 1.0 x 0.4 x 0.8 cm in overall span, with a lesion of similar echogenicity documented at the 8:00 position 5-6 cm from the nipple on the prior study, measured at 1.1 x 0.6 x 1.1 cm. This correlates well in overall size and location to the mammographic density and most likely represents a focus of chronic apocrine metaplasia. Procedure Note Cristal Nieves MD - 01/25/2020 Comparisons made with current mammographic study and an outside ultrasounddated 09/09/2014 the official report of which is not currently available.At the approximate 7:00 position 6 cm from the nipple is a collection ofcysts measuring 1.0 x 0.4 x 0.8 cm in overall span, with a lesion ofsimilar echogenicity documented at the 8:00 position 5-6 cm from thenipple on the prior study, measured at 1.1 x 0.6 x 1.1 cm. This correlateswell in overall size and location to the mammographic density and mostlikely represents a focus of chronic apocrine metaplasia. IMPRESSION: Focal density demonstrated in the inferolateral right breast appears torepresent a chronic focus of apocrine metaplasia. In the absence ofpalpable or otherwise clinically significant findings routine bilateralscreening mammography in 12 months time would be recommended forfollow-up. Results of this examination were relayed to the patient by thetechnologist. BI-RADS CATEGORY 2 - BENIGN POS [id number]. Dinah Aparicio CNP [facility] US BREAST Final Result * BI MAMMOGRAM DIAGNOSTIC WITH TOMOSYNTHESIS WITH CAD (RIGHT) (01/25/2020 1:06 PM EST) Anatomical Region Laterality Modality Breast Right, Breast Bilateral Right M ammography 01/25/2020 2:09 PM EST Impressions 01/25/2020 2:13 PM EST The density demonstrated on recent mammography appears to represent a focus of apocrine metaplasia, also demonstrated on prior outside ultrasound although better visualized on current mammography than previous mammographic studies. In the absence of palpable or otherwise clinically significant findings bilateral screening mammography in 12 months time would appear adequate for surveillance. The results of this examination were relayed to the patient by the technologist. BI-RADS CATEGORY 2 - BENIGN DENSITY: There are scattered fibroglandular densities. Narrative 01/25/2020 2:13 PM EST Full-field mediolateral and spot compression craniocaudal C-view and tomographic imaging was performed with comparison to multiple prior studies, most recently 01/04/2020. The focal ovoid density in the inferolateral quadrant of the breast persists with smooth margins and was subsequently assessed on ultrasound and found to represent a cluster of cysts which appears to be chronic in comparison to a prior outside ultrasound obtained in 2014. Appearance is felt to be most consistent with chronic apocrine metaplasia. No architectural distortion apparent. Dinah Aparicio CNP [facility] MG EXAMS Final Result documented in this encounter Visit Diagnoses Diagnosis Abnormal mammogram Abnormal mammogram, unspecified Abnormal mammogram Abnormal mammogram, unspecified Abnormal mammogram Abnormal mammogram, unspecified documented in this encounter Care Teams Dry Cleaning Manager Relationship Specialty Start Date End Date Dinah Aparicio CNP [address] [place] [address] [place] [address] PCP - General Family Medicine 12/10/19 documented as of this encounter Additional Source Comments The information contained in this document represents components of the legal health record. It is not the complete legal health record.[facility]
== END 2024-12-28 18:42 | disposition home or self-care (01) ==
LOC: HO.ED 18:39
PROVIDERS: Emergency Provider Emergency Medicine; PCP Nurse Practitioner Family
DX: S83.92XA Sprain of unspecified site of left knee, initial encounter (principal); S83.91XA Sprain of unspecified site of right knee, initial encounter; W18.31XA Fall on same level due to stepping on an object, initial encounter; Y93.K1 Activity, walking an animal; Y92.9 Unspecified place or not applicable; Y99.9 Unspecified external cause status; M25.562 Pain in left knee; M25.561 Pain in right knee
CPT/HCPCS: 73564; 99281; 99283

== ENCOUNTER → 2024-12-28 13:42 | Outpatient (BNV) | payer MEDICAID, SELFPAY | PROVIDERS: Emergency Provider Emergency Medicine; PCP Nurse Practitioner Family; Visit Provider Radiology Diagnostic Radiology | DX: Z04.3 Encounter for examination and observation following other accident (principal) | CPT/HCPCS: 73564 ==

== ENCOUNTER 2025-02-24 04:58 | Emergency (ER) | payer MEDICAID, SELFPAY ==
--- NOTE | ~2025-02-24 | CT_ITS ---
EXAMINATION: CT ABDOMEN PELVIS WITH IV CONTRAST HISTORY: lower abd pain, hx diverticulitis COMPARISON: Comparison is made with the prior examination dated 07/10/2024. TECHNIQUE: CT scan of the abdomen and pelvis was performed following administration of 85 mL Omnipaque 350 using standard departmental protocol. Coronal and sagittal reformatted images were generated and reviewed. Oral contrast material was not administered at the request of the referring physician. This CT exam was performed with one or more of the following dose reduction techniques: automated exposure control, adjustment of the mA and/or kV according to patient size, use of iterative reconstruction technique. DLP: 690 mGy-cm FINDINGS: LOWER CHEST: The visualized lung bases are clear. There is no pleural effusion. CARDIOVASCULATURE: The heart is normal in size. There is no pericardial effusion. LIVER: The liver is normal in size and contour. Again seen are multiple hepatic cysts measuring up to 3.5 cm. The hepatic and portal veins are patent. GALLBLADDER / BILE DUCTS: The gallbladder is unremarkable. There is no intra or extrahepatic biliary ductal dilatation. SPLEEN: The spleen is normal in size. No focal splenic lesion is identified. PANCREAS: The pancreas is unremarkable in appearance. ADRENAL GLANDS: Within normal limits. KIDNEYS/RETROPERITONEUM: No renal calculi are identified. There is no hydronephrosis. Again seen is a 2.1 cm fat density mass at the upper pole of the left kidney, consistent with an angiomyolipoma. LYMPH NODES: No abdominal or pelvic lymphadenopathy. VASCULATURE: The abdominal aorta is normal in caliber. MESENTERY/PERITONEUM: There is a small amount of free fluid in the cul-de-sac. No masses. There is no free intraperitoneal gas. STOMACH: There is a small hiatal hernia. The remainder of the stomach is collapsed. SMALL BOWEL: The small bowel is normal in caliber. COLON: There is diverticulosis of the sigmoid colon. There is moderate wall thickening and pericolonic inflammatory stranding about the sigmoid colon, consistent with diverticulitis. There is no extraluminal gas or loculated fluid collection. APPENDIX: Normal. URINARY BLADDER/PELVIC ORGANS: The urinary bladder is collapsed, limiting evaluation. The patient is status post hysterectomy. BONES / SOFT TISSUES: No suspicious bony or soft tissue abnormalities. CT/CT abdomen pelvis w IV con IMPRESSION: Diverticulitis of the sigmoid colon as described. Electronically signed by: Joaquin Varner MD 02/24/2025 10:24 AM JEFF
[2025-02-24 05:13] VITALS: BP 154/66; PULSE 84; RESP 19; TEMP 36.7; O2SAT 95; BMI 29.3
[2025-02-24 05:29] LABS: MANUAL DIFF FLAG NO
[2025-02-24 05:30] LABS: Hematocrit 42.1 % (37.0-47.0); Hemoglobin 14.2 g/dl (12.0-16.0); Imm Gran Abs Auto 0.03 X10*3/uL (0.00-0.03); Imm Gran Pct Auto 0.3 % (0.0-0.4); Lymphocytes Absolute Auto 3.1 X10*3/uL (1.2-4.9); Mean Corpuscular HGB Conc 33.7 g/dl (31.0-35.0); Mean Corpuscular Hemoglobin 29.3 pg (27.0-33.0); Mean Corpuscular Volume 87.0 fL (80.0-98.0); NRBC Abs Auto 0.000 X10*3/uL (0.0-0.012); NRBC Pct Auto 0.0 /100WBC (0.0-0.2); Platelet Count 286 X10*3/uL (160-400); Red Blood Count 4.84 X10*6/uL (4.20-5.50); White Blood Count 11.0 X10*3/uL (4.8-10.8)
[2025-02-24 05:54] LABS: Alanine Aminotransferase 27 U/L (0-31); Albumin Level 4.7 g/dL (3.5-5.0); Alkaline Phosphatase 84 U/L (39-117); Anion Gap 14 (12-20); Aspartate Amino Transferase 23 U/L (5-31); Blood Urea Nitrogen 9 mg/dL (9-16); Calcium 9.6 mg/dL (8.4-10.2); Carbon Dioxide 23 mmol/L (22-29); Chloride 104 mmol/L (96-108); Creatinine Clr Calc Pharmacy 92.0; Estimated Glomerular Filt Rate > 60; Lipase 18 U/L (8-78); Potassium 4.1 mmol/L (3.3-5.1); Sodium 137 mmol/L (135-145); Total Protein 7.5 g/dL (6.5-8.0)
--- NOTE | 2025-02-24 09:20 | ED_ITS ---
HPI - General Adult General Chief complaint: Abdominal Pain Stated complaint: diverticulitis flare up? Time Seen by Provider: 02/24/25 09:14 Source: patient, RN notes reviewed and old records reviewed Mode of arrival: ambulatory Limitations: no limitations History of Present Illness ED Provider: Anabela HPI narrative: Patient is a 54 year old female with history of diverticulitis presenting with complaint of lower abdominal pain/cramping as well as bloating. States bloating started on Saturday and the pain began yesterday. Denies vomiting or diarrhea. Denies hematochezia or melena. States symptoms feel similar to previous episode of diverticulitis. States that even drinking water causes abdominal cramping to come on. Denies any urinary symptoms. Denies any vaginal bleeding or other abnormal vaginal discharge. Also complaining of bilateral knee pain since a fall in December. States pain primarily worsens with kneeling. Has an ortho appointment in April. Has not been taking any [id number] medications for her knee pain. MD complaint: abdominal pain Related Data Previous Rx's ?Medication ?Instructions ?Recorded cephalexin 500 mg capsule 500 mg PO Q6H 7 days #28 cap s 03/25/22 prednisone 20 mg tablet 20 mg PO DAILY 7 days #7 tab s 03/25/22 amoxicillin 875 mg-potassium 1 tab PO Q12H 10 days #20 tabs 07/10/24 clavulanate 125 mg tablet naproxen 500 mg tablet 500 mg PO BID PRN pain #14 t abs 07/10/24 naproxen 500 mg tablet 500 mg PO BID PRN pain #14 t abs 12/28/24 amoxicillin 875 mg-potassium 1 tab PO BID #20 tabs 06/16 clavulanate 125 mg tablet ondansetron 4 mg disintegrating 4 mg PO Q8H PRN nausea and 02/24/25 tablet vomiting #10 tabs Allergies Allergy/AdvReac Type Severity Reaction Status Date / Time No Known Allergies Allergy Verified 02/24/25 05:15 Review of Systems 2 Review of Systems: as per hpi Yes all other systems are reviewed and are negative Constitutional: Constitutional: Reports as per [facility] Social History Social History Smoked in Last 30 Days: No Use of substances other than those prescribed or required for medical reasons: No Advance Directives: No Advance Directives Information Provided: Yes Do you have a plan to hurt others: No Plan Physical Exam ED Vital Signs: Vital Signs - 24 hr 02/24/25 05:13 02/24/25 09:32 Temperature 98.1 F 97.8 F Pulse Rate 84 75 Respiratory Rate 19 14 Blood Pressure 154/66 H 113/49 L Pulse Oximetry 95 94 Oxygen Delivery Method Room Air Room Air BMI result Body Mass Index 29.3 Vital signs have been reviewed and appear to be correct. Blood pressure normal. Heart rate normal. Respiratory rate normal. Temperature normal. Oxygen saturation normal. Const General: cooperative, healthy appearing and no acute distress Orientation/consciousness: oriented to person, oriented to place, oriented to time and patient oriented x3 Limitations: no limitations HENMT Head: Yes normocephalic and Yes atraumatic Ears: external ears normal General nose exam: Normal external nose present Face and sinus: Yes face symmetric Mouth: oropharynx normal and moist mucous membranes Throat: Yes uvula midline Eyes Pupils: Equal, round and reactive pupils present Neck Neck: Yes normal visual inspection and Yes supple Resp Effort & Inspection: normal respiratory effort and able to speak in complete sentences Auscultation: clear to auscultation bilaterally Cardio Rate: regular rate Rhythm: regular rhythm Heart sounds: S1 normal heart sound present and S2 normal heart sound present GI Palpation (GI): Soft to palpation, Tenderness to palpation present (GI) in the LLQ and in the RLQ, no guarding and No Rebound tenderness present Auscultation: normoactive bowel sounds General: Yes no CVA tenderness Back/Spine/Pelvis Back: no CVA tenderness Skin General skin exam: elasticity normal and turgor normal Neuro General: oriented to person, oriented to place, oriented to time, patient oriented x3, moves all extremities, no focal motor deficits and CN's II-XI intact bilaterally Cranial nerves: Yes Equal, round and reactive pupils present Cognition (Neuro): normal cognition Extrem General: Yes full ROM, Yes no pedal edema and Yes no calf tenderness Psych Mental Status: mental status grossly normal Affect: normal affect Thought process: Normal thought process present Medications Administered Discontinued Medications Generic Name Dose Route Start Last Admin Trade Name Freq PRN Reason Stop Dose Admin Lactated Ringer's 1,000 mls @ 999 mls/hr 02/24/25 09:30 02/24/25 10:47 Lr IV 12/03/25 10:30 Infused .Q1H1M GRAEME Infusion Iohexol 100 ml 02/24/25 10:05 02/24/25 10:05 Iohexol 350 Mg/Ml 100 Ml Infus..Btl IV 02/24/25 10:06 85 ml ONCE ONE Administration Ketorolac Tromethamine 15 mg 02/24/25 09:26 02/24/25 09:48 Ketorolac Tromethamine 15 Mg/Ml Vial IVPUSH 02/24/25 09:27 15 mg ONCE ONE Administration Ondansetron HCl 4 mg 02/24/25 09:51 02/24/25 09:58 Ondansetron Hcl 4 Mg/2 Ml Vial IVPUSH 02/24/25 09:52 4 mg ONCE ONE Administration Medical Decision Making Medical Decision Making [facility] Narrative: Patient is a 54 year old female with history of diverticulitis presenting with complaint of lower abdominal pain/cramping as well as bloating. On exam patient is awake, A+Ox3, VS WNL, afebrile, normal neurological exam without focal deficits, physical exam findings as above. Given reported symptoms and physical exam findings, initial differential includes but is not limited to diverticulitis, perforation, abscess, appendicitis, UTI/pyelonephritis. Labs notable for mild leukocytosis. CT abdomen pelvis notable for diverticulitis. My interpretation is in agreement with the radiologist's interpretation. Results discussed with patient and all questions answered. Will treat with course of Augmentin. Advised follow up with PCP as needed. Return precautions discussed at bedside. Patient verbalized understanding of and agreement with plan. Differential Diagnosis Differential Diagnoses: The differential diagnosis associated with the presentation includes As per [facility] Admission/Observation Consideration of admission/observation: Escalation of care including admission/observation considered Patient would have been admitted to the hospital and transferred to appropriate facility had their clinical presentation warranted hospital admission. Lab Data [facility] Lab Attestation statement: I reviewed the patient's lab results. as per [facility] 02/24/25 05:24 02/24/25 05:24 Labs: Lab Results 02/24/25 Range/Units 05:24 WBC 11.0 H (4.8-10.8) X10*3/uL RBC 4.84 (4.20-5.50) X10*6/uL Hgb 14.2 (12.0-16.0) g/dl Hct 42.1 (37.0-47.0) % MCV 87.0 (80.0-98.0) fL MCH 29.3 (27.0-33.0) pg MCHC 33.7 (31.0-35.0) g/dl RDW 12.8 (11.0-16.0) % Plt Count 286 (160-400) X10*3/uL MPV 9.3 L (9.4-12.3) fL Immature Gran % (Auto) 0.3 (0.0-0.4) % Neut % (Auto) 61.8 (45-73) % Lymph % (Auto) 28.4 (20-40) % [place] % (Auto) 8.0 (2-11) % Eos % (Auto) 1.0 (0-4) % Baso % (Auto) 0.5 (0-2) % Lymph # (Auto) 3.1 (1.2-4.9) X10*3/uL [place] # (Auto) 0.9 (0.1-1.2) X10*3/uL Eos # (Auto) 0.1 (0.0-0.4) X10*3/uL Baso # (Auto) 0.1 (0.0-0.2) X10*3/uL Abs Immat Gran (auto) 0.03 (0.00-0.03) X10*3/uL Absolute Neuts (auto) 6.8 (2.0-8.3) x10*3/uL Absolute Nucleated RBC 0.000 (0.0-0.012) X10*3/uL Nucleated RBC % (auto) 0.0 (0.0-0.2) /100WBC Sodium 137 (135-145) mmol/L Potassium 4.1 (3.3-5.1) mmol/L Chloride 104 (96-108) mmol/L Carbon Dioxide 23 (22-29) mmol/L Anion Gap 14 (12-20) BUN 9 (9-16) mg/dL Creatinine 0.77 (0.5-1.4) mg/dL Estim Creat Clear Calc 92.0 Estimated GFR > 60 Random Glucose 109 (60-115) mg/dL Calcium 9.6 (8.4-10.2) mg/dL Total Bilirubin 0.9 (0.0-1.0) mg/dL Direct Bilirubin 0.2 (0.0-0.5) mg/dL AST 23 (5-31) U/L ALT 27 (0-31) U/L Alkaline Phosphatase 84 (39-117) U/L Total Protein 7.5 (6.5-8.0) g/dL Albumin 4.7 (3.5-5.0) g/dL Lipase 18 (8-78) U/L Independent Interpretation I performed an independent interpretation of an: CT Scan Interpretation: CT abdomen pelvis notable for diverticulitis. Radiology Impression Discussion of test interpretation with radiology: I have reviewed the radiologist's reading. Radiologist Impression: TECHNIQUE: CT scan of the abdomen and pelvis was performed following administration of 85 mL Omnipaque 350 using standard departmental protocol. Coronal and sagittal reformatted images were generated and reviewed. Oral contrast material was not administered at the request of the referring physician. This CT exam was performed with one or more of the following dose reduction techniques: automated exposure control, adjustment of the mA and/or kV according to patient size, use of iterative reconstruction technique. DLP: 690 mGy-cm FINDINGS: LOWER CHEST: The visualized lung bases are clear. There is no pleural effusion. CARDIOVASCULATURE: The heart is normal in size. There is no pericardial effusion. LIVER: The liver is normal in size and contour. Again seen are multiple hepatic cysts measuring up to 3.5 cm. The hepatic and portal veins are patent. GALLBLADDER / BILE DUCTS: The gallbladder is unremarkable. There is no intra or extrahepatic biliary ductal dilatation. SPLEEN: The spleen is normal in size. No focal splenic lesion is identified. PANCREAS: The pancreas is unremarkable in appearance. ADRENAL GLANDS: Within normal limits. KIDNEYS/RETROPERITONEUM: No renal calculi are identified. There is no hydronephrosis. Again seen is a 2.1 cm fat density mass at the upper pole of the left kidney, consistent with an angiomyolipoma. LYMPH NODES: No abdominal or pelvic lymphadenopathy. VASCULATURE: The abdominal aorta is normal in caliber. MESENTERY/PERITONEUM: There is a small amount of free fluid in the cul-de-sac. No masses. There is no free intraperitoneal gas. STOMACH: There is a small hiatal hernia. The remainder of the stomach is collapsed. SMALL BOWEL: The small bowel is normal in caliber. COLON: There is diverticulosis of the sigmoid colon. There is moderate wall thickening and pericolonic inflammatory stranding about the sigmoid colon, consistent with diverticulitis. There is no extraluminal gas or loculated fluid collection. APPENDIX: Normal. URINARY BLADDER/PELVIC ORGANS: The urinary bladder is collapsed, limiting evaluation. The patient is status post hysterectomy. BONES / SOFT TISSUES: No suspicious bony or soft tissue abnormalities. CT/CT abdomen pelvis w IV con IMPRESSION: Diverticulitis of the sigmoid colon as described. External Record Review External record reviewed: Inpatient record, Office record and Outpatient record Prescription Management I considered prescription management with: Antibiotic Discharge Plan Discharge Clinical Impression: Diverticulitis Patient Disposition: Home, Self-Care Instructions: Diverticulitis (DC) Additional Instructions: You were evaluated in the emergency department today for abdominal pain. Your CT scan showed evidence of diverticulitis. You are being treated with a course of antibiotics, complete the full course as prescribed even if symptoms improve. You can also take ibuprofen 600 mg every 6 hours as needed for pain. Be sure to drink plenty of fluids. Follow up with your primary care provider as needed. Return to the emergency department if you develop worsening pain, persistent vomiting, fever 100.4? F or greater or any other new or concerning symptoms. Prescriptions: New amoxicillin-pot clavulanate 875-125 mg tablet 1 tab PO BID Qty: 20 0RF ondansetron 4 mg tablet,disintegrating 4 mg PO Q8H PRN (Reason: nausea and vomiting) Qty: 10 0RF No Action prednisone 20 mg tablet 20 mg PO DAILY 7 Days Qty: 7 0RF cephalexin 500 mg capsule 500 mg PO Q6H 7 Days Qty: 28 0RF naproxen 500 mg tablet 500 mg PO BID PRN (Reason: pain) Qty: 14 0RF naproxen 500 mg tablet 500 mg PO BID PRN (Reason: pain) Qty: 14 0RF amoxicillin-pot clavulanate 875-125 mg tablet 1 tab PO Q12H 10 Days Qty: 20 0RF Print Language: Wolof
[2025-02-24 09:32] VITALS: BP 113/49; PULSE 75; RESP 14; TEMP 36.6; O2SAT 94
--- NOTE | 2025-02-24 09:36 | PC.NURSE ---
patient roomed, changed, placed on half monitor. pain 6/10 middle and left lower quadrant of abdomen. nauseas x2 days. no vomiting. no diarrhea. complains of body aches. vitals signs stable.
[2025-02-24] MEDS: Lactated Ringers 1,000 ML 999 ML IV (09:43)
[2025-02-24] MEDS: iohexoL 350 MG/ML 100 ML INFUS..BTL IV (10:05)
--- OUTSIDE RECORDS SUMMARY | 2025-02-24 10:52 | XMS_ITS | Encounter Summary ---
Author Organization [facility] Address [address] [place] [phone] Phone Care Team Providers Care Truck Terminal Manager Name Role Phone Dinah Aparicio CNP Primary Care Provide r Encounter Details Date Type Department Care Team (Late st Contact Info) Description 12/10/2019 Ancillary Orders [address] [address] Dinah Aparicio CNP [address] [place] [address] [email or web address] Breast screening Social History Tobacco Use Types [...] as of this encounter Plan of Treatment Upcoming Encounters Date Type Department Care Team (Late st Contact Info) Description 02/11/2025 Procedure Pass [address] [place] [address] 10/27/2025 10:15 AM EDT Appointment [address] [place] [address] Dinah Aparicio CNP [address] [place] [phone] documented as of this encounter Results * [...] areas of architectural distortion or suspicious microcalcifications. us Dinah Aparicio CNP IM MG EXAMS Final Result documented in this encounter Visit Diagnoses Diagnosis Breast screening Breast screening, unspecified Breast screening Breast screening, unspecified documented in this encounter Care Teams Truck Terminal Manager Relationship Specialty Start Date End Date Dinah Aparicio CNP [address] [place] [address] [email or web address] PCP - General Family Medicine 12/10/19 documented as of this encounter Additional Source Comments The information contained in this document represents components of the legal health record. It is not the complete legal health record.[facility]
--- OUTSIDE RECORDS SUMMARY | 2025-02-24 10:52 | XMS_ITS | Encounter Summary ---
Author Organization [facility] Address [address] [place] [address] [place] [phone] Phone Care Team Providers Care Audio Operator Name Role Phone Dinah Aparicio CNP Primary Care Provide r Encounter Details Date Type Department Care Team (Late st Contact Info) Description 04/10/2023 Procedure Pass [address] [place] [address] Social History Tobacco Use Types Packs/Day Years [...] st Contact Info) Description 02/11/2025 Procedure Pass [address] [place] [address] 10/27/2025 10:15 AM EDT Appointment [address] [place] [address] Dinah Aparicio CNP [address] [place] [address] documented as of this encounter Visit Diagnoses Not on filedocumented in this encounter Additional Health Concerns Assessment Noted Time PHQ-9 Depression Total Score: 9 04/15/19 24 9:32 AM EST PHQ-2 Depression Total Score: 4 04/15/19 24 9:32 AM EST documented as of this encounter Care Teams Audio Operator Relationship Specialty Start Date End Date Dinah Aparicio CNP [address] [place] [address] PCP - General Family Medicine 12/10/19 documented as of this encounter Additional Source Comments The information contained in this document represents components of the legal health record. It is not the complete legal health record.[facility]
--- OUTSIDE RECORDS SUMMARY | 2025-02-24 10:52 | XMS_ITS | Encounter Summary ---
Author Organization [facility] Address [address] [place] [phone] Phone Care Team Providers Care Credit Verifier Name Role Phone Dinah Aparicio CNP Primary Care Provide r Encounter Details Date Type Department Care Team (Late Contact Info) Description 12/10/2019 Ancillary Orders [facility],Outside Imaging [address] [place] [address] System, Provider Not In, [place] [address] Social History Tobacco Use Types Packs/Day Years [...] Encounters Date Type Department Care Team (Late Contact Info) Description 02/11/2025 Procedure Pass [address] [place] [address] 10/27/2025 10:15 AM EDT Appointment [address] [place] [address] Dinah Aparicio, SALES SPECIAL AGENT [address] [place] [address] documented as of this encounter Results * [...] on filedocumented in this encounter Care Teams Credit Verifier Relationship Specialty Start Date End Date Dinah Aparicio CNP [address] [place] [address] [email or web address] PCP - General Family Medicine 12/10/19 documented as of this encounter Additional Source Comments The information contained in this document represents components of the legal health record. It is not the complete legal health record.[facility]
--- OUTSIDE RECORDS SUMMARY | 2025-02-24 10:52 | XMS_ITS | Encounter Summary ---
Author Organization [facility] Address [address] [place] [address] Phone Care Team Providers Care Electrical Engineering Technician Name Role Phone Dinah Aparicio CNP Primary Care Provide r Encounter Details Date Type Department Care Team (Late Contact Info) Description 12/11/2019 Ancillary Orders [facility],Outside Imaging [address] [place] [address] System, Provider Not In, [place] [address] Social History Tobacco Use Types Packs/Day Years [...] (Late Contact Info) Description 02/11/2025 Procedure Pass [address] [place] [address] 10/27/2025 10:15 AM EDT Appointment [address] [place] [address] Dinah Aparicio, SWITCH CREW SUPERVISOR [address] [place] [address] documented as of this encounter Results * [...] on filedocumented in this encounter Care Teams Electrical Engineering Technician Relationship Specialty Start Date End Date Dinah Aparicio CNP [address] [place] [address] [email or web address] PCP - General Family Medicine 12/10/19 documented as of this encounter Additional Source Comments The information contained in this document represents components of the legal health record. It is not the complete legal health record.[facility]
--- OUTSIDE RECORDS SUMMARY | 2025-02-24 10:52 | XMS_ITS | Encounter Summary ---
Author Organization [facility] Address [address] [place] [address] [place] [address] Phone Care Team Providers Care Parakeet Raiser Name Role Phone Dinah Aparicio CNP Primary Care Provide r Reason for Visit * Reason Onset Date Comments Abdominal Cramping 02/23/2025 Encounter Details Date Type Department Care Team (Late st Contact Info) Description 02/23/2025 Nurse Triage [address] [address] Dinah Aparicio CNP [address] [place] [address] [email or web address] Abdominal Cramping Social History Tobacco Use Types Packs/Day Years [...] on file documented as of this encounter Progress Notes * Mita Enriquez RN - 02/23/2025 12:10 PM EST Spoke with Lynette. Reports abdominal cramping, nausea, chills and decreased appetite for the past 2days. Had a CT done at the ER and was found to have diverticulitis, reports feeling similar. Deniesany abdominal pain, fevers, or vomiting. She hasn't been able to eat or drink much. Advised on going to the ER as would likely need urgent imaging, even if she came into the office tomorrow as there's no appointments today. Nurse Triage Encounter Note Reason for Triage Lynette Nichols contacted office for Abdominal Cramping Call Disposition Go To Ed Now (Or To Office With Lip/Provider Approval) Disposition Comments: Patient/caregiver understands and will follow disposition: Yes Care Advice Patient/Caregiver understands and will follow care advice?: Yes, plans to follow advice Abdominal Pain - [id number] Mita Enriquez RN Tue Feb 23, 2025 12:17 PM Disposition and First Aid GO TO ED/UCC NOW (OR TO OFFICE WITH PCP APPROVAL): * Discuss with PCP, follow office policy, OR use nursing judgment to select most appropriate site for patient's evaluation. * Consider both the urgency of the patient???s symptoms AND what resources may be needed to evaluate and manage the patient. * Then tell the caller: Go to . Leave Now. SOURCES OF CARE: * TRIAGER CAUTION: In selecting the most appropriate care site, you must consider both the severityof the patient???s symptoms AND what resources are available at that care site. * ED: Patients who may need surgery, need hospitalization, sound seriously ill, or may be unstable need to be sent to an ED. Likewise, so do most patients with complex medical problems and serious symptoms. * UCC: Some Urgent Care Centers (UCCs) can manage patients who are stable and have less serious symptoms (e.g., minor illnesses and injuries). The triager must know the UCC capabilities before sending a patient there. If unsure, call ahead. * OFFICE: If patient sounds stable and not seriously ill, consult PCP (or follow your office policy) to see if patient can be seen NOW in office. DRINK CLEAR FLUIDS: * Drink clear fluids only (such as water, flat soft drinks or half-strength Gatorade). * Sip small amounts at a time, until you feel better and the pain is gone. * Then slowly return to a regular diet. AVOID ASPIRIN AND NSAIDS: * Avoid taking aspirin and anti-inflammatory medicines (such as NSAIDS like ibuprofen/Motrin, naproxen/Aleve) unless you have been told to do so by a doctor (or PAPER FOLDER/PA). * These drugs can irritate the stomach lining and make the pain worse. * Acetaminophen (such as Tylenol) does not cause stomach irritation. Patient will call back with additional questions or if symptoms change or worsen Mita Enriquez RN Reason for Disposition and Assessment Reason for Disposition MILD TO MODERATE constant pain lasting > 2 hours Protocols used: Abdominal Pain - [id number] * Daryl Johnson - 02/23/2025 11:43 AM EST Complete the Following for ALL Patient Symptoms [facility] Red [place] Yellow Green Tool Call Back Number: (& caller's name if not the patient) [phone] Description of Symptoms: What symptoms are you experiencing? Cramps, fever, nausea, chills - concerned about diverticulitis flare up When did the symptoms start? 2 days Has this happened before? Yes - ongoing (worsening) 1) Enter the Reason for Call (TRIAGE) & C Comment (COLOR + Symptom) (Ex: TRIAGE - YELLOW, tick bite ) 2) Select the color-based designation below before taking next steps & documenting the outcome Yellow Call Designation & Outcome Yellow Symptom(s): Triage (Cramps, fever, nausea, chills - concerned about diverticulitis flare up) Route Normal Priority to knee bolter. A nurse will call back to discuss symptoms further to best determine next steps. documented in this encounter Plan of Treatment Upcoming Encounters Date Type Department Care Team (Late st Contact Info) Description 02/11/2025 Procedure Pass [address] [place] [address] 10/27/2025 10:15 AM EDT Appointment [address] [place] [address] Dinah Aparicio CNP [address] [place] [address] documented as of this encounter Visit Diagnoses Not on filedocumented in this encounter Additional Health Concerns Assessment Noted Time PHQ-9 Depression Total Score: 0 08/26/19 24 4:25 PM EDT PHQ-2 Depression Total Score: 0 08/26/19 24 4:25 PM EDT documented as of this encounter Care Teams Parakeet Raiser Relationship Specialty Start Date End Date Dinah Aparicio CNP [address] [place] [address] PCP - General Family Medicine 12/10/19 documented as of this encounter Additional Source Comments The information contained in this document represents components of the legal health record. It is not the complete legal health record.[facility]
--- OUTSIDE RECORDS SUMMARY | 2025-02-24 10:52 | XMS_ITS | Encounter Summary ---
Author Organization [facility] Address [address] [place] [phone] Phone Care Team Providers Care Gym Supervisor Name Role Phone Dinah Aparicio CNP Primary Care Provide r Encounter Details Date Type Department Care Team (Late st Contact Info) Description 01/05/2020 Procedure Pass [address] [place] [address] Social History Tobacco Use Types Packs/Day Years [...] st Contact Info) Description 02/11/2025 Procedure Pass [address] [place] [address] 10/27/2025 10:15 AM EDT Appointment [address] [place] [address] Dinah Aparicio CNP [address] [place] [address] [email or web address] documented as of this encounter Visit Diagnoses Not on filedocumented in this encounter Care Teams Gym Supervisor Relationship Specialty Start Date End Date Dinah Aparicio CNP [address] [place] [id number] PCP - General Family Medicine 12/10/19 documented as of this encounter Additional Source Comments The information contained in this document represents components of the legal health record. It is not the complete legal health record.[facility]
--- OUTSIDE RECORDS SUMMARY | 2025-02-24 10:52 | XMS_ITS | Encounter Summary ---
Author Organization [facility] Address [address] [place] [address] [place] [phone] Phone Care Team Providers Care Produce Shipper Name Role Phone Dinah Aparicio CNP Primary Care Provide r Encounter Details Date Type Department Care Team (Late st Contact Info) Description 04/10/2023 Transcribe Orders Virtual Department [address] [place] [address] Dinah Aparicio CNP [address] [place] [address] [email or web address] Breast screening (Primary Dx) Social History Tobacco [...] st Contact Info) Description 02/11/2025 Procedure Pass [address] [place] [address] 10/27/2025 10:15 AM EDT Appointment [address] [place] [address] Dinah Aparicio, WELL SERVICE FLOORPERSON [address] [place] [address] [email or web address] documented as of this encounter Results * [...] unspecified documented in this encounter Care Teams Produce Shipper Relationship Specialty Start Date End Date Dinah Aparicio CNP [address] [place] [phone] [email or web address] PCP - General Family Medicine 12/10/19 documented as of this encounter Additional Source Comments The information contained in this document represents components of the legal health record. It is not the complete legal health record.[facility]
--- OUTSIDE RECORDS SUMMARY | 2025-02-24 10:52 | XMS_ITS | Encounter Summary ---
Author Organization [facility] Address [address] [place] [address] Phone Care Team Providers Care Weight Loss Consultant Name Role Phone Dinah Aparicio CNP Primary Care Provide r Encounter Details Date Type Department Care Team (Late st Contact Info) Description 01/05/2020 Ancillary Orders [address] [address] Dinah Aparicio CNP [address] [place] [address] [email or web address] Abnormal mammogram Social History Tobacco Use Types [...] st Contact Info) Description 02/11/2025 Procedure Pass [address] [place] [address] 10/27/2025 10:15 AM EDT Appointment [address] [place] [address] Dinah Aparicio, DAIRY SPECIALIST [address] [place] [address] [email or web address] documented as of this encounter Results * [...] BI-RADS CATEGORY 2 - BENIGN POS [id number]. us Dinah Aparicio [facility] IM US BREAST Final Result * BI MAMMOGRAM [...] chronic apocrine metaplasia. No architectural distortion apparent. us Dinah Aparicio CNP IMG MG EXAMS Final Result documented in this encounter Visit Diagnoses Diagnosis Abnormal mammogram Abnormal mammogram, unspecified Abnormal mammogram Abnormal mammogram, unspecified Abnormal mammogram Abnormal mammogram, unspecified documented in this encounter Care Teams Weight Loss Consultant Relationship Specialty Start Date End Date Dinah Aparicio CNP [address] [place] [phone] PCP - General Family Medicine 12/10/19 documented as of this encounter Additional Source Comments The information contained in this document represents components of the legal health record. It is not the complete legal health record.[facility]
--- OUTSIDE RECORDS SUMMARY | 2025-02-24 10:52 | XMS_ITS | Encounter Summary ---
Author Organization [facility] Address [address] [place] [address] Phone Care Team Providers Care Durable Medical Equipment Technician Name Role Phone Dinah Aparicio CNP Primary Care Provide r Encounter Details Date Type Department Care Team (Late st Contact Info) Description 12/10/2019 Procedure Pass [address] [place] [address] Social History Tobacco Use Types Packs/Day Years [...] st Contact Info) Description 02/11/2025 Procedure Pass [address] [place] [address] 10/27/2025 10:15 AM EDT Appointment [address] [place] [address] Dinah Aparicio CNP [address] [place] [address] [email or web address] documented as of this encounter Visit Diagnoses Not on filedocumented in this encounter Care Teams Durable Medical Equipment Technician Relationship Specialty Start Date End Date Dinah Aparicio CNP [address] [place] [phone] PCP - General Family Medicine 12/10/19 documented as of this encounter Additional Source Comments The information contained in this document represents components of the legal health record. It is not the complete legal health record.[facility]
--- OUTSIDE RECORDS SUMMARY | 2025-02-24 10:52 | XMS_ITS | Encounter Summary ---
Author Organization [facility] Address [address] [place] [address] [place] [address] Phone Care Team Providers Care Firearms Expert Name Role Phone [email or web address] holm CNP Primary Care Provide r Encounter Details Date Type Department Care Team (Late Contact Info) Description 02/11/2025 Transcribe Orders Virtual Department [address] [place] [address] Capo Shen [place] [email or web address] Breast screening (Primary Dx) Social History Tobacco [...] (Late Contact Info) Description 02/11/2025 Procedure Pass [address] [place] [address] 10/27/2025 10:15 AM EDT Appointment [address] [place] [address] Dinah Aparicio CNP [address] [place] [address] [email or web address] Scheduled Orders Name Type Priority Associated Diagnoses Orde r Schedule Mammogram Screening (Bilateral) Imaging Routine Breast screening Expected: 02/11/2025, Expires: 02/11/2027 documented as of this encounter Visit Diagnoses Diagnosis Breast screening- Primary Breast screening, unspecified documented in this encounter Additional Health Concerns Assessment Noted Time PHQ-9 Depression Total Score: 0 08/26/19 24 4:25 PM EDT PHQ-2 Depression Total Score: 0 08/26/19 24 4:25 PM EDT documented as of this encounter Care Teams Firearms Expert Relationship Specialty Start Date End Date Dinah Aparicio CNP [address] [place] [address] PCP - General Family Medicine 12/10/19 documented as of this encounter Additional Source Comments The information contained in this document represents components of the legal health record. It is not the complete legal health record.[facility]
--- OUTSIDE RECORDS SUMMARY | 2025-02-24 10:53 | XMS_ITS | Clinical Summary ---
Author Organization [facility] Address [address] [facility] [address] [place] [address] Phone Care Team Providers Care Manager Actuarial Name Role Phone Dinah Aparicio CNP Primary [...] 07/20/2024 Overview (07/20/2024): 07/10/2024 [place] [facility] [place] Assessment & Plan (07/20/2024 [...] seconds, normal neuro exam, mildly provoked by Hamburg-Hallpike to the left. Given handout on Lance [...] Encounters Date Type Department Care Team Description 02/23/2025 Nurse Triage [facility] [address] [place] [address] Dinah Aparicio CNP Abdominal Cramping 02/11/2025 Transcribe Orders Virtual Department 30 [place] [address] Capo Shen [place] Breast screening (Primary Dx) 12/28/2024 Orders Only [facility] [address] [place], [place] [id number] Provider, MD Saad from Last 3 Months Immunizations Immunization Administration [...] 07/20/2024 11:48 AM EDT Plan of Treatment Upcoming Encounters Date Type Department Care Team (Late st Contact Info) Description 02/11/2025 Procedure Pass [address] [place] [address] 10/27/2025 10:15 AM EDT Appointment [place] [place], [place] [address] Dinah Aparicio, EXPLOITATION ANALYST [address] [place] [address] [email or web address] Health Maintenance Due Date Last Done Comments [...] Imaging Report Only (12/28/2024 2:45 PM EDT) Historical Provider IMLevi XR CHEST Edited Re sult - Final * Outside Imaging Report Only (12/28/2024 2:44 PM EDT) Historical Provider IMG XR CHEST Final Res ult * Outside Glucose,Fasting (07/10/2024) Glucose, fasting - External 87 65 - 99 mg/dL [facility] Provider LAB BLOOD ORDERABLES Aliza l Result [...] of the results and recommendations. Dinah Aparicio EXPLOITATION ANALYST IMG MG EXAMS Final Result * Hepatitis C antibody, qualitative (04/15/2023 10:05 AM EST) HCV NON-REACTIV E NON-REACTI VE [facility] Blood 04/15/2023 10:0 5 AM EST 04/15/2023 10:08 AM EST Dinah Aparicio CNP LAB BLOOD BKR ORDERAB LES Final Result [address] [address] * Lipid panel (04/15/2023 10:05 AM EST) HDL 50 mg/dL [facility] Comment: Interpretation <40 mg/dL: Low HDL cholesterol (major risk factor for CHD) Greater than or equal to 60 mg/dL: High HDL cholesterol ( negative risk factor for CHD) HDL - cholesterol is affected by a number of factors, e.g. smoking, excerise, hormones, sex and age. CHOLESTEROL 198 0 - 240 mg/dL [facility] TRIGLYCERIDES 108 30 - 160 mg/dL [facility] LDL 126 50 - 129 mg/dL [facility] Comment: LDL levels in terms of risk for coronary heart disease: <100 mg/dL: Optimal 100-129 mg/dL: Near or above optimal 130-159 mg/dL: Borderline high 160-189 mg/dL: High >190 mg/dL: Very High CARDIAC RISK RATIO 4.0 3.3 - 4.4 C [facility] Blood 04/15/2023 10:0 5 AM EST 04/15/2023 10:08 AM EST us Dinah Aparicio EXPLOITATION ANALYST LAB BLOOD BKR ORDERAB LES Final Result [facility] [address] [place] [address] from Last 3 Months or Most Recently Relevant to Health Maintenance Insurance [facility] [place] [id number] [facility] Care Teams Manager Actuarial Relationship Specialty Start Date End Date Dinah Aparicio CNP [address] [place] [phone] [email or web address] PCP - General Family Medicine 12/10/19 Additional Source Comments The information contained in this document represents components of the legal health record. It is not the complete legal health record.[facility]
[2025-02-24 11:10] VITALS: BP 106/65; PULSE 67; RESP 16; TEMP -17.7; TEMP 0; O2SAT 95
== END 2025-02-24 11:11 | disposition home or self-care (01) ==
PROVIDERS: Emergency Provider Emergency Medicine; PCP Nurse Practitioner Family
DX: K57.32 Diverticulitis of large intestine without perforation or abscess without bleeding (principal); R10.30 Lower abdominal pain, unspecified
CPT/HCPCS: 36415; 74177; 80048; 80076; 83690; 85025; 96361; 96374; 96375; 99285; J1885; J2405; J7120; Q9967

== ENCOUNTER → 2025-02-24 09:26 | Outpatient (BNV) | payer MEDICAID, SELFPAY | PROVIDERS: Emergency Provider Emergency Medicine; PCP Nurse Practitioner Family; Visit Provider Radiology Diagnostic Radiology | DX: K57.30 Diverticulosis of large intestine without perforation or abscess without bleeding (principal) | CPT/HCPCS: 74177 ==